=== PATIENT | female | born 1935 | race Caucasian/White ===

== ENCOUNTER 2017-03-06 21:01 | Observation (INO) ==
[2017-03-07] MEDS ORDERED: Acetaminophen 325 MG TABLET PO ONE (03:05)
[2017-03-07] MEDS ORDERED: *HR* OxyCODONE Immed Rel 5 MG TABLET PO PRN (03:18)
[2017-03-07] MEDS ORDERED: *HR* Morphine 2 MG/ML SYRINGE IVP PRN (03:18)
[2017-03-07] MEDS ORDERED: Ondansetron 4 MG/2 ML VIAL IVP PRN (03:18)
[2017-03-07] MEDS ORDERED: Naloxone 0.4 MG/ML INJ IVP PRN (03:18)
[2017-03-07] MEDS ORDERED: Acetaminophen 325 MG TABLET PO PRN (03:18)
--- NOTE | 2017-03-07 03:36 | Internal Med History&Physical ---
Date of Encounter: 03/07/17 Time of Encounter: 03:00 Assessment and Plan (1) TIA (transient ischemic attack) Status: Acute . Qualifiers: Transient cerebral ischemia type: unspecified Qualified Code(s): G45.9 - Transient cerebral ischemic attack, unspecified Internal Medicine - H&P: HPI Chief complaint: TIA Admitted From: Hospital to Hospital Transfer (Hospital transferred from [facility] ED) Plans for Post Hospital Care: Home History of present illness: Ms. Hubbard is a 81 year old female with significant history for HTN, HLD, CVAs/ TIAs, OA/OP/vit D def,AICD-pacemaker/CHF, chr A/C (Xarelto), nonsmoker, etc.. The patient is admitted to [facility] as a hospital transferred from [facility] ED where she presented via EMS from home with complaints concerning of a stroke-like event with slurring of speech. She has significant history of multiple CVAs and TIAs. Compliant with her prescribed medications which also include Xarelto. Denies any indiscretions. Denies any transient fevers chills sweats nausea vomiting diarrhea upper or lower respiratory complaints dysuria frequency or rash. Vital signs were stable. CBC with differential normal. PT 23.0 INR 2.1 PTT 46.7. Urinalysis normal. Basic metabolic panel normal. BUN 22 creatinine 0.84. Troponin 0.01. CT of the head without contrast demonstrated no acute intracranial abnormality. No evidence of any acute infarct, hemorrhage, mass effect or midline shift. Old right occipital lobe infarct noted. Right frontal and left basal ganglia lacunar lesions noted. Periventricular white matter changes compatible with chronic microvascular ischemic changes noted. Preliminary impression suggests transient ischemic episode with reversal initial neuro deficit slurring of speech. Initial screening studies otherwise revealed no acute significant abnormalities to guide differential considerations. The patient is at risk given her advanced age, presenting concerns and comorbidities acute clinical decline and morbidity. Workup and treatments will proceed comprehensively. The patient was visited and interviewed and examined. Cumulative laboratory and radiographic data base will be considered and discussed. Pertinent ancillary medical records including ECW and PCI documentation when available was reviewed and considered. Given the patient's presenting concerns, past medical history, clinical findings and symptoms, she is admitted at this time will undergo further evaluation and disposition. Orders were written as per the computerized physician night order selector system.......................................................................... .................... Consultative opinions will be sought as clinical circumstances justify. Pain management needs will be addressed. Laboratory+radiographic data base will be updated as appropriate. Studies include: UA, UDS,pt/inr, ddimer, aptt, prolactin, cpk, cardiac injury panel, BNP , metabolic and hematologic panel, magnesium, phosphorus, ionized calcium, thyroid panel, lipid profile, A1c, C-peptide, CRP, sedimentation rate, blood gas , lactic acid, serologies, etc. Precautions: Aspiration, fall, delirium protocol/surveillance initiated. Telemetry with continuous hemodynamic monitoring and pulse oximetry initiated. Orthostatic vital signs. Empiric antibiotic coverage: pending diagnostics/culture data. Special studies: CT head, MRI brain, carotid US, 2D echo, chest x-ray, telemetry , EKG. Pulmonary toilet: Incentive spirometry. PRN aerosol bronchodilator, mucolytic, antitussive. Supplemental oxygen. Corticosteroid therapy PRN. CPAP/BiPAP supplemental oxygen delivery employedPRN. Aerosol Mucomyst therapy may be employedPRN. Fluid and electrolyte repletion efforts will proceed. Careful attention to fluid balance and renal recovery will be emphasized. Avoidance of nephrotoxic exposure and adverse drug drug interaction in the setting of impaired renal function will be monitored closely. Acute coronary syndrome protocol/surveillance initiated. Acute WHEEL [employer] SU[employer] injury protocol/surveillance initiated. NIHSS guidelines. Aspirin plus statin therapy. Continuance of chronic anticoagulation (Xarelto). Passive hypertension allowed pending completion of [employer] SU[employer] evaluation. DVT and PUD prophylaxis initiated: PPI therapy, intermittent pneumatic cuffs/ TEDs. Early ambulation will be encouraged. Immunization updates recommended. Influenza and pneumococcal vaccinations as part of ongoing preventative healthcare recommendations strongly recommended. Smoking cessation counseling briefly addressed. Patient is a nonsmoker. Advanced care directive discussion briefly addressed. Patient does not declare any healthcare restrictions at this time. Cardiovascular risk appraisal and cardiovascular risk reduction efforts will be emphasized. Physical+occupational+speech therapy consulted to evaluate patient's functional capacity and progress mobility as her circumstances justify. Nutrition/heart healthy dietary education. Supplemental dietary-options counseling as circumstances justify. Outpatient medication schedules will be reviewed, confirmed and facilitated as appropriate. Reconciliation of home treatments including adjustments, substitutions and reintroduction into the treatment regimen will address necessary maintenance therapies for chronic pre-existing medical conditions. Plan of care has been reviewed and discussed in detail with the patient. Questions addressed. Hospital course dictated by clinical findings, treatment response and potential consultative interventions. Patient is at risk for further acute clinical decline due to her age, chief complaints and comorbid conditions. Condition is serious. Prognosis is guarded. CODE STATUS is full. Past Med Surg Social Fam HX - Past Medical History Source: old records reviewed Medical history: arthritis, CVA, diabetes, hyperlipidemia, hypertension, osteoporosis (vit D def...), TIA, other Psychiatric history: anxiety, other - Past Surgical History Surgical History: pacemaker/AICD, other, AICD, pacemaker - Social History Smoking Status: Never smoker Smokeless Tobacco Status: No Alcohol use: none Drug use: none Occupational status: unemployed, other Current living situation: Home - Independent Activity Level: Independent ambulation, Mostly sedentary Recent Out of Country Travel Within the Last 8 Weeks: No Exposure or Possible Exposure to Illness During Travel: No - Family History Mother Living Status: Hx Family Cardiac Disorders: Yes ([place]) Hx Family Endocrine Disorder: Yes Hx Family Neurologic Disorders: Yes (CVA) Internal Medicine - H&P: Meds Cholecalciferol (Vitamin D3) [Vitamin D3] 5,000 unit PO DAILY 03/06/17 [History] ClonazePAM [Klonopin] 0.5 mg PO BID 03/06/17 [History] Magnesium Oxide [Magnesium] 500 mg PO DAILY 03/06/17 [History] Gibson-3/Dha/Epa/Fish Oil [Fish Oil 1,000 mg Softgel] 1,000 mg PO DAILY 03/06/17 [History] Rivaroxaban [Xarelto] 10 mg PO 1700 03/06/17 [History] Patient Taking Own Medication 1 each PO DAILY each 03/08/17 [Rx] Allergies Penicillins Adverse Reaction (Verified 03/06/17 19:16) Hives ROS unobtainable: due to mental status All Systems PM: A 10-system review of systems was performed and is negative for pertinent findings except as documented above in the HPI. - Constitutional Constitutional: as per HPI, malaise, no chills, no fever(s), no night sweats - EENT Eyes: as per HPI, no change in vision, no discharge, no pain, no photophobia Ears: as per HPI, no ear discharge, no ear pain, no tinnitus Nose, mouth and throat: as per HPI, no dysphagia, no nasal discharge, no neck pain, no sore throat - Cardiovascular Cardiovascular ROS IM: as per HPI, no chest pain, no diaphoresis, no dyspnea, no lightheadedness, no palpitations, no syncope - Respiratory Respiratory: as per HPI, no cough, no dyspnea, no wheezing, no excessive phlegm production - Gastrointestinal Gastrointestinal: as per HPI, no abdominal pain, no diarrhea, no hematemesis, no hematochezia, no melena, no nausea, no vomiting - Genitourinary Genitourinary: as per HPI, no change in urinary stream, no dysuria, no flank pain, no hematuria - Musculoskeletal Musculoskeletal ROS IM: as per HPI, no numbness, no tingling - Integumentary Integumentary IM: as per HPI, no rash, no unusual bruising - Neurological Neurological ROS: as per HPI, abnormal speech, other, no confusion, no convulsions, no focal weakness, no numbness, no tingling, no tremor(s) - Psychiatric Psychiatric: as per HPI - Endocrine Endocrine IM: as per HPI - Hematologic/Lymphatic Hematologic/Lymphatic: as per HPI, no easy bruising - Allergic/Immunologic Allergic/Immunologic: as per HPI - Constitutional Vitals: Temp Pulse Resp BP Pulse Ox 97.4 F L 62 16 145/74 96 03/07/17 03:00 03/07/17 03:00 03/07/17 03:00 03/07/17 03:00 03/07/17 03:00 General appearance: Present: cooperative, mild distress, A&O X 3, answers questions appropriately - Head Head exam: Present: atraumatic, normal inspection, normocephalic - Eye Eye exam: Present: EOMI, PERRL, conjuntiva pink, sclera anicteric Pupils: Present: normal accommodation, PERRL - ENT ENT exam: Present: mucous membranes moist, normal oropharynx - Neck Neck exam general surgery: Present: supple, trachea midline. Absent: lymphadenopathy - Respiratory Respiratory exam: Present: decreased breath sounds, CTAB. Absent: accessory muscle use, rales, rhonchi, wheezes - Cardiovascular Cardiovascular exam: Present: distant heart sounds, RRR, +S1, +S2. Absent: diastolic murmur, gallop, rubs, systolic murmur - GI/Abdominal GI/Abdominal exam: Present: normal bowel sounds, soft, no peritoneal signs. Absent: distended, tenderness - Extremities Exam Extremities exam: Present: warm, radial pulses palpable and symetrical. Absent : calf tenderness, cyanotic, pedal edema - Neurological Exam Neurological exam: Present: alert, CN II-XII intact, oriented X3, no focal deficits. Absent: pronater drift, facial droop, speech deficit - Expanded Neurological Exam Neurological exam expanded: Present: protecting the airway. Absent: ataxia, expressive aphasia, receptive aphasia, tremor Patient oriented to: Present: person, place, time Speech: Present: fluid speech Cranial Nerves: EOM's intact PM: Normal, gag reflex PM: Normal, nystagmus PM: Normal, tongue deviation PM: Normal Cerebellar function: finger to nose: Normal, heel to copeland: Normal Upper motor neuron: Babinski sign: Normal, Anshul neglect: Normal, pronator drift : Normal, sensory extinction: Normal Coma Scale Eye Opening: Spontaneous Coma Scale Motor Response: Obeys Commands Coma Scale Verbal Response: Oriented Coma Scale Total: 15 - Psychiatric Psychiatric exam: Present: normal affect, normal mood - Skin Skin exam: Present: dry, intact Internal Med - H&P Results - Labs CBC & Chem 7: 03/08/17 05:56 03/08/17 05:56
--- NOTE | 2017-03-07 03:41 | Event Note ---
Date of Encounter: 03/07/17
[2017-03-07] MEDS: 0.9 % Sodium Chloride 1,000 ML IVC SCH (04:22)
[2017-03-07] MEDS: clonazePAM 0.5 MG TABLET PO SCH ×2 (04:22→20:23)
[2017-03-07 04:35] LABS: VBG HCO3 29.1 mEq/L (21-27); VBG PH 7.54 pH Units (7.32-7.42)
[2017-03-07 04:47] LABS: Hemoglobin A1C 4.8 %
[2017-03-07 04:59] LABS: Chol/HDL Ratio 3.7 (0-4.9); Phosphorous 3.3 mg/dL (2.3-4.7)
[2017-03-07] MEDS ORDERED: Patient Taking Own Medication 1 EACH PO SCH (09:00)
[2017-03-07] MEDS ORDERED: Aspirin 81 MG TAB.CHEW PO SCH (09:00)
--- NOTE | 2017-03-07 15:20 | Internal Med Progress Note ---
Date of Encounter: 03/07/17 Time of Encounter: 10:00 - Assessment and plan (1) TIA (transient ischemic attack) Current Visit: Yes Status: Acute Assessment and plan: Patient reports sudden onset diffuse 10/10 headache yesterday, onset about 3 or 4 PM yesterday. She was speaking on the phone to her son who told her that she needed to go to the emergency department. Patient states that she was very confused and did not know what was going on. She says that she cut her hair which is unusual for her and that she is dropping her scissors the whole time. She did notice her speech was slurred and she was having trouble finding the appropriate words to use. Patient said she eventually called her neighbor who called 911 for her. She was taken to the emergency [facility] and then transferred here for evaluation. She denies headache today. She has a prior history CVA/TIA. She denies any weakness or numbness/tingling to her extremities. She denies any chest pain. She appears to have no deficits at has returned to baseline. MRI shows no evidence of acute infarct. There is moderate chronic small vessel ischemic disease within the periventricular white matter. There is a small right occipital lobe infarct. Carotid Dopplers and echocardiogram are ordered and still pending. She passed her swallow exam. Patient is on telemetry. She also has a loop recorder that was implanted here 2 years ago. Monitor patient condition Monitor vital signs Carotids and echo pending Qualifiers: Transient cerebral ischemia type: unspecified Qualified Code(s): G45.9 - Transient cerebral ischemic attack, unspecified (2) HTN (hypertension) Current Visit: Yes Status: Acute Assessment and plan: Patient's blood pressure was initially elevated on arrival. Since that time it has remained within normal limits. We will continue to monitor throughout visit. Patient does not take any blood pressure medication at home. Per patient's history, she says that she only has hypertension when she is having her TIAs. Qualifiers: Hypertension type: other secondary hypertension Qualified Code(s): I15.8 - Other secondary hypertension (3) HLD (hyperlipidemia) Current Visit: Yes Status: Chronic Assessment and plan: Patient states that her cholesterol was 190 and her primary care physician told her that her cholesterol was too high. She only takes fish oil supplements at this time. Lipid panel is within normal limits. Cholesterol is in the 170s. HDL is elevated. Patient can continue fish oil supplements after discharge. Qualifiers: Hyperlipidemia type: unspecified Qualified Code(s): E78.5 - Hyperlipidemia , unspecified (4) DVT prophylaxis Current Visit: Yes Status: Acute Assessment and plan: Patient is on Xarelto. Compression stockings ordered. - Time Spent With Patient less than 15 minutes - Subjective Interval history: Patient reports diffuse headache with sudden onset yesterday at approximately 3 or 4 PM. She rates it a 10 out of 10. She also reports confusion at the same time, she cut her hair which she does not normally do. She says that she dropped her scissors multiple times and did not know what she was doing. She also noticed slurred speech, which has since resolved. Patient lives alone. She was speaking to her son on the phone who told her to go to the emergency room immediately. She ended up calling her neighbor who came over and called 911 for her. She is transported to [facility] and then transferred here for evaluation. She currently denies a headache, and she also denies weakness or tingling to any of her extremities. She is neurologically intact. She is strong and equal bilaterally all his commands well. Has GCS of 15. Her speech is not slurred and she is able to name pictures. - Constitutional Vitals: Temp Pulse Resp BP Pulse Ox 97.5 F L 61 18 132/62 96 03/07/17 14:51 03/07/17 14:51 03/07/17 14:51 03/07/17 14:51 03/07/17 14:51 General appearance: Present: cooperative, A&O X 3, pleasant, no acute distress, answers questions appropriately - Head Head exam: Present: normal inspection - Eye Eye exam: Present: normal appearance, PERRL, conjuntiva pink. Absent: nystagmus - ENT ENT exam: Present: mucous membranes moist, normal exam, normal external ear exam - Neck Neck exam general surgery: Present: normal inspection. Absent: lymphadenopathy , tenderness - Respiratory Respiratory exam: Present: CTAB. Absent: accessory muscle use, chest wall tenderness, decreased breath sounds, rales, respiratory distress, rhonchi, stridor, wheezes, tachypnea - Cardiovascular Cardiovascular exam: Present: RRR, +S1, +S2. Absent: diastolic murmur, systolic murmur - Expanded Cardiovascular Exam Peripheral pulses: 2+: Dorsalis Pedis (L) PM, Dorsalis Pedis (R) PM - GI/Abdominal GI/Abdominal exam: Present: normal bowel sounds, soft. Absent: distended, firm , hepatomegaly, mass, tenderness - Extremities Exam Extremities exam: Present: full ROM, normal capillary refill, normal inspection , warm, radial pulses palpable and symetrical. Absent: joint swelling, pedal edema, tenderness - Neurological Exam Neurological exam: Present: alert, altered, oriented X3, no focal deficits, strengths equal and symetr throughout. Absent: motor sensory deficit, pronater drift, facial droop, speech deficit - Expanded Neurological Exam Neurological exam expanded: Absent: expressive aphasia, total aphasia Patient oriented to: Present: person, place, time Speech: Absent: expressive aphasia, garbled, slurred, stutter Cranial Nerves: nystagmus PM: Normal (none), tongue deviation PM: Normal (none) Cerebellar function: finger to nose: Normal, heel to copeland: Normal Upper motor neuron: pronator drift: Normal (none), sensory extinction: Normal ( none) Coma Scale Eye Opening: Spontaneous Coma Scale Motor Response: Obeys Commands Coma Scale Verbal Response: Oriented Coma Scale Total: 15 Internal Medicine: Result - Labs Labs: Cardiac Enzymes 03/07/17 03/07/17 Range/Units 04:12 12:43 Troponin I 0.00 0.00 (0-0.03) ng/mL - Impressions Impressions Brain MRI 03/07/17 04:01 IMPRESSION: No evidence of acute infarct. Moderate chronic small vessel ischemic disease within the periventricular white matter. Small old right occipital lobe infarct. D/ / 03/07/2017 11:00:32 Seth Tiwari MD / [email or web address] Interpreting Provider: Seth Tiwari MD Consult Discharge Plan - Plan Referrals: Ricardo Adams MD [Primary Care Provider] -
[2017-03-07] MEDS ORDERED: *HR* Rivaroxaban 10 MG TABLET PO SCH (17:00)
--- NOTE | 2017-03-07 18:50 | Carotid Imaging Report ---
Carotid Duplex Patient Name:Cori Hubbard Order Number:[id number] Procedure Date:03/07/2017 Date:1935ge:81 yrs Gender:Female Lt BP:132 / 62 mmHg [facility] Room #: 3B52 Optician Apprentice Dispensing:Alis Martinez, RVT, RDCS Referring MD:Andrez Conklin MD sanitation engineer:None Reading MD:Roman Trinh MD Primary Indications:stroke Risk Factors Yes/No Hypertension No Diabetes No Hypercholesterolemia No Smoking Current No Impressions: The right internal carotid artery has a 40-59% stenosis. The left carotid artery has minimal plaque throughout. Recommendations: Risk factor reduction. Follow-up carotid duplex in 1 year. Findings Carotid Duplex: Right: The right proximal common carotid artery has a PSV of 101 cm/s and a EDV of 11 cm/s. The right mid common carotid artery has a PSV of 84 cm/s and a EDV of 13 cm/s. The right distal common carotid artery has a PSV of 77 cm/s and a EDV of 18 cm/s. The right bifurcation has a PSV of 84 cm/s and a EDV of 14 cm/s. There is smooth heterogeneous plaque. The right proximal internal carotid artery has a PSV of 102 cm/s and a EDV of 19 cm/s. There is smooth heterogeneous plaque. There is 40-59% stenosis in the right mid internal carotid artery with a PSV of 131 cm/s and a EDV of 22 cm/s. There is smooth heterogeneous plaque. The right distal internal carotid artery has a PSV of 107 cm/s and a EDV of 32 cm/s. The right eca has a PSV of 126 cm/s and a EDV of 8 cm/s. The right vertebral artery has a PSV of 76 cm/s and a EDV of 24 cm/s. Left: The left proximal common carotid artery has a PSV of 100 cm/s and a EDV of 14 cm/s. The left mid common carotid artery has a PSV of 94 cm/s and a EDV of 22 cm/s. The left distal common carotid artery has a PSV of 79 cm/s and a EDV of 16 cm/s. There is nonstenotic plaque in the left bifurcation with a PSV of 59 cm/s and a EDV of 14 cm/s. There is smooth heterogeneous plaque. There is nonstenotic plaque in the left proximal internal carotid artery with a PSV of 65 cm/s and a EDV of 17 cm/s. There is smooth heterogeneous plaque. The left mid internal carotid artery has a PSV of 55 cm/s and a EDV of 18 cm/s. The left distal internal carotid artery has a PSV of 75 cm/s and a EDV of 27 cm/s. The left eca has a PSV of 115 cm/s and a EDV of 10 cm/s. The left vertebral artery has a PSV of 26 cm/s and a EDV of 5 cm/s. Carotid Results Right PSV EDV Assessment Proximal CCA 101 11 Mid CCA 84 13 Distal CCA 77 18 Bifurcation 84 14 Non Stenotic Plaque Proximal ICA 102 19 Non Stenotic Plaque Mid ICA 131 22 40-59% stenosis Distal ICA 107 32 ECA 126 8 Vertebral Artery 76 24 Left PSV EDV Assessment Proximal CCA 100 14 Mid CCA 94 22 Distal CCA 79 16 Bifurcation 59 14 Non Stenotic Plaque Proximal ICA 65 17 Non Stenotic Plaque Mid ICA 55 18 Distal ICA 75 27 ECA 115 10 Vertebral Artery 26 5 Ratio's Right ICA/CCA Ratio: 1.56 Left ICA/CCA Ratio: 0.69 Updated by Roman Trinh MD on 03/07/2017 6:45:48 PM electronically signed on 03/07/2017 6:45:59 PM with status of Final
[2017-03-08] MEDS: 0.9 % Sodium Chloride 1,000 ML IVC SCH (04:18)
[2017-03-08 07:09] VITALS: BP 174/68
[2017-03-08 07:11] LABS: Basophils # 0.1 K/mcL (0.0-0.2); Basophils % 0.6 %; Eosinophils # 0.2 K/mcL (0.0-0.6); Eosinophils % 2.2 %; Hematocrit 38.7 % (35.3-44.9); Hemoglobin 12.6 g/dL (11.5-15.4); Immature Granulocytes % 0.5 % (0-4); Lymphocytes # 1.7 K/mcL (0.6-4.6); Mean Corpuscular HGB Conc 32.6 g/dL (31.6-35.5); Mean Corpuscular Volume 92.1 fL (83.0-100.0); Mean Platelet Volume 11.3 fL (9.4-12.4); Monocytes # 0.7 K/mcL (0.0-1.3); Monocytes % 9.5 %; Platelet Count 188 K/mcL (140-400); Red Cell Distribution Width 12.1 % (11.5-14.5); Segmented Neutrophils % 65.2 %
[2017-03-08 07:21] LABS: BUN/Creatinine Ratio 25 (6-26); Blood Urea Nitrogen 18 mg/dL (7-20); Calcium 9.2 mg/dL (8.6-10.8); Carbon Dioxide 26 mEq/L (19-29); Chloride 111 mEq/L (98-109); Glucose 95 mg/dL (70-99); Osmolality,Calculated 298 (280-300); Potassium 3.6 mEq/L (3.5-4.5); Sodium 143 mEq/L (136-145); eGFR For African Americans > 60 (> 60); eGFR For Non-African Americans > 60 (> 60)
--- NOTE | 2017-03-08 09:36 | ECHO - Doppler Report ---
Echo with Saline Contrast Name: Cori Hubbard Date of Study: 03/07/2017 Date: 1935 Ht: 64.0 in Medical Record#: [id number] Age: 81 Wt: 132.0 lb Gender: Female BSA: 1.64 Order #: [id number] Location: [facility] Room #: [facility] Reading Physician: Ameena Mondragon DO Office Equipment Technician: Alis Martinez RVT, [facility] Ordering Physician: Andrez Conklin MD Primary Physician: None Indications: Stroke Impressions: LVEF 60-65%. Normal left ventricular size and systolic function. Mild concentric hypertrophy of the left ventricle. There is evidence of mild diastolic dysfunction of the left ventricle. Normal right ventricular size and function. Mild mitral regurgitation. No pulmonary hypertension. There is no evidence of a PFO with agitated saline contrast. Left Ventricular Wall Motion: Rest Echo Findings All wall segments showed normal motion. Findings: Study Quality * Technically adequate exam. ECG Findings * Sinus bradycardia. Left Ventricle * LVEF 60-65%. * Mild concentric left ventricular hypertrophy. * Mild left ventricular diastolic dysfunction. Right Ventricle * Normal right ventricular structure and function. Aorta * Normally sized aortic root. Left Atrium * Normal left atrial size. Aortic Valve * No aortic regurgitation. * Trileaflet aortic valve. * Mildly calcified aortic valve leaflets. * No aortic stenosis. Mitral Valve * Normal mitral valve structure. * No mitral stenosis. * Mild mitral regurgitation. Right Atrium * Normal right atrial size. Tricuspid Valve * Tricuspid valve not well visualized. * Estimated RA pressure is 3 mmHg. * Estimated RVSP is 20 mmHg. * No pulmonary hypertension. * Trace tricuspid regurgitation. Pulmonic Valve * Pulmonic valve is not well visualized. * No pulmonic stenosis. * No pulmonic regurgitation. Pulmonary Artery * Pulmonary artery not well visualized. Interatrial Septum * No evidence of PFO by color Doppler. * No evidence of PFO with agitated saline contrast. Pericardium * There is no pericardial effusion present. IVC * Normal IVC dimensions and inspiratory collapse. History Family History of CAD Contrast: Agitated saline 20 ml. Measurements: BP: 132/ 62 2D Normal Values RVIDd: 3.10 cm <2.7 cm IVSd: 1.30 cm 0.6 - 1.0 cm LVIDd: 3.10 cm 3.7 - 5.6 cm LVPWd: 1.30 cm 0.6 - 1.1 cm LVIDs: 2.00 cm 1.5 - 3.6 cm AO: 2.50 cm < 4.0 cm LA: 3.10 cm 2.0 - 4.0cm %FS: 35.50 cm >25 % LA volume: 28 Mitral Valve Dec Time:257.00 msec Peak E:1.06 m/sec Peak A:1.32 m/sec E/A Ratio:0.8 Peak E' Lat Yemi:5.95 cm/s Peak E' Med Yemi:7.46 cm/s E/E' Lat Ratio:17.8 E/E' Med Ratio:14.2 Tricuspid Valve TV Regurg Peak Grad: 17.00mmHg TV Regurg Peak Yemi: 2.09m/sec Updated by Ameena Mondragon on 03/08/2017 9:29:55 AM electronically signed on 03/08/2017 9:31:46 AM with status of Final Wall Motion [place]: 1=Normal, 2=Hypokinesis, 3=Akinesis, 4=Dyskinesis, 5=Aneurysmal, 6=Hyperkinetic, X=Not Visualized (Blank)=Missing
--- NOTE | 2017-03-08 10:34 | Discharge Summary ---
Date of Encounter: 03/08/17 Time of Encounter: 10:05 - Discharge Diagnosis (1) TIA (transient ischemic attack) Priority: Primary Status: Acute Comments: Pt reports sudden onset diffuse 10/10 headache yesterday that was accompanied by confusion and slurred speech. Pt was taken to ED by EMS then transferred here for evaluation. MRI shows no evidence of acute infarct, moderate chronic small vessel ischemic disase within the periventricular white matter, remote small right occipital lobe infarct. CT head showed no evidence of acute infarct, findings similar to MRI. Echo shows LVEF 60-65%, normal systolic function, mild concentric hypertrophy of L ventricle, mild diastolic dysfunction, mild RM and no pulmonary hypertension. Carotid dopplers: R ICA has 40-59% stenosis, L ICA has minimal plaque throughout. Follow up in 1 year and reduce risk factors. Pt is back to baseline and without deficits, gait is steady, speech is clear, she denies numbness or tingling. She is anxious to go home since testing is done. Pt's lipid panel is WNL other than HDL, which is elevated. Pt takes fish oil supplements at home. Declines statin, states that her had difficulty walking and joint pain for several months and she does not wish to potentially have those symptoms. She wishes to continue fish oil at home. Qualifiers: Transient cerebral ischemia type: unspecified Qualified Code(s): G45.9 - Transient cerebral ischemic attack, unspecified (2) HTN (hypertension) Priority: Secondary Status: Chronic Comments: Blood pressure has been 140/70s, at goal and appropriate for pts age. No medication required at this time. Pt will be asked to continue to monitor periodically and keep a log to discuss with PCP. Qualifiers: Hypertension type: other secondary hypertension Qualified Code(s): I15.8 - Other secondary hypertension (3) HLD (hyperlipidemia) Priority: Secondary Status: Chronic Comments: Lipid panel WnL, other than HDL which is elevated. Continue fish oil supplements upon discharge. Qualifiers: Hyperlipidemia type: unspecified Qualified Code(s): E78.5 - Hyperlipidemia , unspecified (4) DVT prophylaxis Priority: Secondary Status: Acute Comments: Continue Xarelto at home. (5) Diastolic dysfunction, left ventricle Priority: Secondary Status: Acute Comments: Per echo done yesterday. No CHF or pulmonary hypertension. - Discharge Medications Home Medications: Cholecalciferol (Vitamin D3) [Vitamin D3] 5,000 unit PO DAILY 03/06/17 [History] ClonazePAM [Klonopin] 0.5 mg PO BID 03/06/17 [History] Magnesium Oxide [Magnesium] 500 mg PO DAILY 03/06/17 [History] [place]-3/Dha/Epa/Fish Oil [Fish Oil 1,000 mg Softgel] 1,000 mg PO DAILY 03/06/17 [History] Rivaroxaban [Xarelto] 10 mg PO 1700 03/06/17 [History] Patient Taking Own Medication 1 each PO DAILY each 03/08/17 [Rx] Allergies/Adverse Reactions: Allergies Penicillins Adverse Reaction (Verified 03/06/17 19:16) Hives Procedures/tests Complete & Pending: Procedures Performed prior 72 hours Category Date Time Status MR head/brain wo con [MR] Routine MRI 03/07/17 04:01 Completed EV carotid duplex imaging BI Routine Y 03/07/17 04:01 Completed EV echocardiogram Routine Y 03/07/17 04:01 Completed Date of admission: 03/06/17 23:02 Primary care physician: Ricardo Adams MD Consults: 03/07/17 03:35 Consult to Occupational Therapy [CONS] Routine Comment: Evaluate, develop and implement POC Consult to Physical Therapy [CONS] Routine Comment: Evaluate, develop and implement POC Discharging clinician: Liz Washington Anticipated date of discharge: 03/08/17 - Patient Status Disposition: Home, Self-Care Condition: Good Functional capacity at discharge: independent ambulation Overall status at discharge: patient is back to baseline - Discharge Instructions Follow Up With: Ricardo Adams MD [Primary Care Provider] - 03/12/17 1:00 pm Aramis Crespo MD [Partnered Physician] - 03/09/17 9:45 am Additional Instructions: Your Brain MRI did not show a new stroke. Your carotid dopplers were ok. You do not need to follow up for a repeat test for 1 year. Low fat, low cholesterol diet. Try to stay active. Resume your home medications once you are home. Return to the closest ER for any other problems or concerns, or for worsening condition. Follow up with Dr. Adams in the next week or so for a follow up exam. - Diet and Activity Activity: resume usual activities as tolerated Diet: advance to your usual diet Hospital course: Ms. Hubbard is a 81 year old female with a prior medical history of TIA/CVA, hypertension, and hyperlipidemia. Patient was transported to [facility] emergency room from home on March 06, after she experienced sudden 10 out of 10 diffuse headache with confusion and slurred speech. She was talking on the phone with her son and was very confused, she cut her hair and states that she kept dropping the scissors and did not know what she was doing. Eventually, she called her neighbor who called the squad for her. She was transferred to this emergency department for continued evaluation. Her head CT was negative for acute infarct, and her brain MRI showed no evidence of acute infarct, as well. There is moderate chronic small vessel ischemic disease within the periventricular white matter, and a small right remote occipital lobe infarct. Her right internal carotid artery has a 40-59% stenosis. The left carotid artery has minimal plaque throughout. Recommendations are reduction in risk factors and no follow-up necessary for one year. Echocardiogram shows LVEF of 60-65%, normal systolic function, evidence of mild diastolic dysfunction of left ventricle, mild MR, and no pulmonary hypertension. Patient is anxious to return home. She has remained neurologically intact and has no deficits. She has returned to baseline per her own account. Her gait is steady as I walk with her in the hallway, her speech is clear. She is able to move about in her room and dress herself without difficulty. She has declined taking a statin due to decreased mobility of her when he was taking it. She will continue taking her fish oil supplement at home. Her blood pressure today has been 140s over 60s and 70s which is goal and appropriate. She will also continue her Xarelto and her other home medications at home. Patient is stable for discharge. - Time Spent with Patient Total time spent providing and/or coordinating discharge services: Less than 30 minutes - Constitutional Vitals: Temp Pulse Resp BP Pulse Ox 97.5 F L 59 14 174/68 98 03/08/17 06:59 03/08/17 06:59 03/08/17 06:59 03/08/17 06:59 03/08/17 06:59 General appearance: Present: cooperative, A&O X 3, pleasant, no acute distress, answers questions appropriately - Head Head exam: Present: normal inspection - Eye Eye exam: Present: normal appearance, conjuntiva pink - ENT ENT exam: Present: mucous membranes moist, normal exam, normal external ear exam - Neck Neck exam general surgery: Present: normal inspection. Absent: lymphadenopathy , tenderness - Respiratory Respiratory exam: Present: CTAB. Absent: decreased breath sounds, rales, stridor, wheezes, tachypnea - Cardiovascular Cardiovascular exam: Present: RRR, +S1, +S2. Absent: clicks, diastolic murmur, gallop, systolic murmur - GI/Abdominal GI/Abdominal exam: Present: normal bowel sounds, soft. Absent: distended, firm , hepatomegaly, tenderness - Extremities Exam Extremities exam: Present: normal capillary refill, normal inspection, warm, radial pulses palpable and symetrical. Absent: mottling, pedal edema, tenderness - Neurological Exam Neurological exam: Present: alert, normal gait, oriented X3, no focal deficits, strengths equal and symetr throughout. Absent: pronater drift, facial droop, speech deficit
== END 2017-03-08 12:30 | disposition home or self-care (01) ==
LOC: 3BNU
PROVIDERS: ADMIT Family Medicine; ATTEND Registered Nurse

== ENCOUNTER 2017-09-07 20:49 | Observation (INO) ==
[2017-09-07] MEDS ORDERED: 0.9 % Sodium Chloride 1,000 ML IVC ONE (21:29)
--- NOTE | 2017-09-07 21:38 | Emergency Department Note ---
Disposition Clinical Impression: Altered mental status Qualifiers: Altered mental status type: disorientation Qualified Code(s): R41.0 - Disorientation, unspecified Dementia Qualifiers: Dementia type: unspecified type Dementia behavioral disturbance: without behavioral disturbance Qualified Code(s): F03.90 - Unspecified dementia without behavioral disturbance Disposition: Admitted As Inpatient Condition: Good Time of Disposition: 00:28 Altered Mental Status HPI - General Chief Complaint: ED Altered Mental Status Stated Complaint: confusion Time Seen by Provider: 09/07/17 21:09 Source: patient, family Mode of arrival: private vehicle Limitations: no limitations Nursing Notes Reviewed: Yes Vital Signs Reviewed: Yes - History of Present Illness HPI Narrative: 82-year-old female presents the ED complaining of altered mental status, confusion, falls and diarrhea. Patient states that yesterday she was ironing and she felt a weird pain in her left leg and some numbness that caused her to fall backwards she states that she did hit her head but did not lose consciousness and she remembers the entire event. She is not complaining of any headache or neck pain after that. Today though she says that she has been a little confused. She says she has had multiple bouts of diarrhea today. She has had no fevers or abdominal pain. She has no chest pain or shortness of breath. She has no headaches or blurry vision. She has no numbness or pain or tingling going down the arms or legs. She has no pain with urination. Son states that he was called by the police [facility] as her alarms went off at her house. When police arrived they noticed that she was on the ground saying that she was unable to get up. She was crawling around like she was very confused. She is unable to lock her doors or even walk to the car. She has been unable to walk since he arrived to pick her up with police. Otherwise patient has no complaints. - Related Data Home Medications Medication Instructions Recorded Confirmed Cholecalciferol (Vitamin D3) 5,000 unit PO DAILY 03/06/17 03/07/17 [Vitamin D3] Magnesium Oxide [Magnesium] 500 mg PO DAILY 03/06/17 03/07/17 [place]-3/Dha/Epa/Fish Oil [Fish Oil 1,000 mg PO DAILY 03/06/17 03/07/17 1,000 mg Softgel] Rivaroxaban [Xarelto] 10 mg PO 1700 03/06/17 03/07/17 clonazePAM [Klonopin] 0.5 mg PO BID 03/06/17 03/07/17 Previous Rx's Medication Instructions Recorded Patient Taking Own Medication 1 each PO DAILY each 03/08/17 Allergies Allergy/AdvReac Type Severity Reaction Status Date / Time Penicillins AdvReac Hives Verified 09/07/17 21:03 Review of Systems: 10 point review of systems done and negative unless otherwise stated in history of present illness. Constitutional: Reports: weakness. Denies: fever, chills, weight change Cardiovascular: Denies: chest pain Respiratory: Denies: cough, wheezes Gastrointestinal: Reports: diarrhea. Denies: abdominal pain, nausea, vomiting Neurological: Reports: weakness, confusion. Denies: headache, numbness, paresthesias, abnormal gait Past Medical History - Past Medical History Medical history: Reports: arthritis, CVA, diabetes, hyperlipidemia, hypertension , osteoporosis, TIA, other Surgical history: Reports: pacemaker/AICD, other, AICD, pacemaker Psychiatric history: Reports: anxiety, other - Social History Smoking Status: Never smoker Smokeless Tobacco Status: No Alcohol use: Reports: none Drug use: Reports: none Physical Exam - General Limitations: no limitations General appearance: alert, in no apparent distress - Head Head exam: atraumatic, normocephalic, normal inspection - Eye Eye exam: Present: normal appearance, PERRL, EOMI - ENT ENT exam: normal exam, normal oropharynx, mucous membranes moist - Neck Neck exam: Present: normal inspection, full ROM, trachea midline. Absent: tenderness - Chest Chest inspection: Present: normal inspection, symmetric chest wall rise - Respiratory Respiratory exam: Present: normal lung sounds bilaterally - Cardiovascular Cardiovascular exam: Present: regular rate, normal rhythm, normal heart sounds - Abdominal Exam Abdominal exam: Present: soft, Non-Tender. Absent: tenderness, distention, guarding, rebound, rigidity - Back Exam Back exam: Present: normal inspection, full ROM. Absent: tenderness, CVA tenderness (R), CVA tenderness (L) - Neurological Exam Neurological exam: Present: alert, oriented X3 - Skin Skin exam: Present: warm, dry, intact, normal color Course Course Narrative: 82-year-old female with confusion and altered mental status. We will do normal altered mental status workup including CT of her head and neck as she is on Xarelto. We will get a chest x-ray as well as a pelvis x-ray as patient is unable to walk. We will get a troponin, CMP, CBC, coags, acetaminophen, ethanol level. We will also get a urinalysis. We will also get an EKG. Patient family or care with this plan. Disposition is most likely admission. Vital Signs Temperature 98.1 F 09/07/17 20:58 Pulse Rate 99 09/07/17 20:58 Respiratory Rate 20 09/07/17 20:58 Blood Pressure 168/90 09/07/17 20:58 O2 Sat by Pulse Oximetry 98 09/07/17 20:58 Temperature 97.8 F 09/08/17 00:34 Pulse Rate 82 09/08/17 00:34 Respiratory Rate 16 09/08/17 00:34 Blood Pressure 150/81 09/08/17 00:34 O2 Sat by Pulse Oximetry 99 09/08/17 00:34 Oxygen Delivery Oxygen Delivery Room Air Altered Mental Status - MDM Narrative Medical decision making narrative: 82-year-old female presents to the ED complaining of confusion, diarrhea and altered mental status. Patient presented here with her son who states that she has not been acting normal she is unable to walk and was unable to lock the door which is very abnormal for her. She is normal walking and talking and acting normal. She did state that she fell yesterday from standing position did hit her head but did not have any loss of consciousness or amnesia. She states since then she uses had a hard time remembering things. She has had 1 or 2 episodes of diarrhea. Due to this altered mental status was due to altered mental status workup which came back only showing a slight leukocytosis , elevated CK and possible urinary tract infection. Culture was recommended wearing a wait to treat with antibiotics until the culture comes back. Patient did have a normal neurological exam. She had no other findings on physical exam. CT head and neck both came back showing no abnormalities. EKG and chest x-ray were also normal. We also did a pelvis x-ray which also came back normal. Due to the patient having altered mental status she will be admitted for further evaluation and treatment. Patient and family are okay with this plan. I was agreed to admit the patient for further evaluation. Patient is admitted in stable condition Cervical Spine CT 09/07/17 21:29 IMPRESSION: No acute abnormality of the cervical spine. D/ / Bipin Good MD / Bipin Good MD Interpreting Provider: Bipin Good MD Chest X-Ray 09/07/17 21:29 IMPRESSION: No acute cardiopulmonary disease. D/ / Roman Naik MD / Roman Naik MD Interpreting Provider: Roman Naik MD Head CT 09/07/17 21:29 IMPRESSION: No acute intracranial abnormality. D/ / Neville King MD / Neville King MD Interpreting Provider: Neville King MD Pelvis X-Ray 09/07/17 21:30 IMPRESSION: No evidence of an acute fracture. 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 D/ / Roman Naik MD / Roman Naik MD Interpreting Provider: Roman Naik MD - Medical Records Medical records reviewed: Yes I reviewed the patient's medical records. - Lab Data Lab results reviewed: Yes I reviewed the patient's lab results. Result diagrams: 09/07/17 21:50 09/07/17 21:50 Lab Results 09/07/17 09/07/17 09/07/17 Range/Units 21:50 21:50 21:50 WBC 12.5 H (4.3-11.1) K/mcL RBC 4.69 (3.82-4.97) M/mcL Hgb 14.6 (11.5-15.4) g/dL Hct 42.7 (35.3-44.9) % MCV 91.0 (83.0-100.0) fL MCH 31.1 (28.0-33.3) pg MCHC 34.2 (31.6-35.5) g/dL RDW 12.2 (11.5-14.5) % Plt Count 246 (140-400) K/mcL MPV 10.8 (9.4-12.4) fL Immature Gran % 0.4 (0-4) % Seg Neutrophils % 79.8 % Lymphocytes % 11.1 % Monocytes % 8.2 % Eosinophils % 0.2 % Basophils % 0.3 % Neutrophils # 10.0 H (1.6-8.9) K/mcL Lymphocytes # 1.4 (0.6-4.6) K/mcL Monocytes # 1.0 (0.0-1.3) K/mcL Eosinophils # 0.0 (0.0-0.6) K/mcL Basophils # 0.0 (0.0-0.2) K/mcL PT 14.0 H (9.4-12.1) Seconds INR 1.3 APTT 36.3 H (26.0-36.0) Seconds Sodium 142 (136-145) mEq/L Potassium 3.9 (3.5-4.5) mEq/L Chloride 105 (98-109) mEq/L Carbon Dioxide 27 (19-29) mEq/L BUN 25 H (7-20) mg/dL Creatinine 0.75 (0.57-1.11) mg/dL Est GFR ( Amer) > 60 (> 60) Est GFR (Non-Af Amer) > 60 (> 60) BUN/Creatinine Ratio 33 H (6-26) Glucose 111 H (70-99) mg/dL Calculated Osmolality 299 (280-300) Calcium 9.9 (8.6-10.8) mg/dL Total Bilirubin 0.6 (0.2-1.2) mg/dL Direct Bilirubin 0.2 (0.0-0.5) mg/dL Indirect Bilirubin 0.4 (0.0-1.2) mg/dL AST 30 (5-34) Units/L ALT 19 (0-55) Units/L Alkaline Phosphatase 48 (38-126) Units/L Creatine Kinase 338 H (29-168) Units/L Troponin I (0-0.03) ng/mL Serum Total Protein 7.4 (6.0-8.3) g/dL Albumin 4.2 (3.5-5.0) g/dL Globulin 3.2 (2.4-3.5) g/dL Albumin/Globulin Ratio 1.3 (1.1-2.2) Urine Color (Yellow) Urine Clarity (Clear) Urine pH (5.0-8.0) pH Units Ur Specific [place] (1.010-1.025) Urine Protein (Neg-Trace) mg/dL Urine Glucose (UA) (Normal) mg/dL Urine Ketones (Negative) mg/dL Urine Blood (Negative) Urine Nitrite (Negative) Urine Bilirubin (Negative) Urine Urobilinogen (Normal) mg/dL Ur Leukocyte Esterase (Negative) Urine Microscopic RBC (0-3) per hpf Urine Microscopic WBC (0-3) per hpf Ur Squamous Epith Cells (None-Few) per lpf Urine Bacteria (None-Few) per hpf Hyaline Casts (None-Few) per lpf Ur Culture Indicated? (NO) Acetaminophen < 1.0 L (10-30) mcg/mL Ethyl Alcohol < 10 (0-10) mg/dL 09/07/17 09/07/17 Range/Units 21:50 23:06 WBC (4.3-11.1) K/mcL RBC (3.82-4.97) M/mcL Hgb (11.5-15.4) g/dL Hct (35.3-44.9) % MCV (83.0-100.0) fL MCH (28.0-33.3) pg MCHC (31.6-35.5) g/dL RDW (11.5-14.5) % Plt Count (140-400) K/mcL MPV (9.4-12.4) fL Immature Gran % (0-4) % Seg Neutrophils % % Lymphocytes % % Monocytes % % Eosinophils % % Basophils % % Neutrophils # (1.6-8.9) K/mcL Lymphocytes # (0.6-4.6) K/mcL Monocytes # (0.0-1.3) K/mcL Eosinophils # (0.0-0.6) K/mcL Basophils # (0.0-0.2) K/mcL PT (9.4-12.1) Seconds INR APTT (26.0-36.0) Seconds Sodium (136-145) mEq/L Potassium (3.5-4.5) mEq/L Chloride (98-109) mEq/L Carbon Dioxide (19-29) mEq/L BUN (7-20) mg/dL Creatinine (0.57-1.11) mg/dL Est GFR ( Amer) (> 60) Est GFR (Non-Af Amer) (> 60) BUN/Creatinine Ratio (6-26) Glucose (70-99) mg/dL Calculated Osmolality (280-300) Calcium (8.6-10.8) mg/dL Total Bilirubin (0.2-1.2) mg/dL Direct Bilirubin (0.0-0.5) mg/dL Indirect Bilirubin (0.0-1.2) mg/dL AST (5-34) Units/L ALT (0-55) Units/L Alkaline Phosphatase (38-126) Units/L Creatine Kinase (29-168) Units/L Troponin I 0.02 (0-0.03) ng/mL Serum Total Protein (6.0-8.3) g/dL Albumin (3.5-5.0) g/dL Globulin (2.4-3.5) g/dL Albumin/Globulin Ratio (1.1-2.2) Urine Color Yellow (Yellow) Urine Clarity Clear (Clear) Urine pH 6.0 (5.0-8.0) pH Units Ur Specific [place] 1.017 (1.010-1.025) Urine Protein Negative (Neg-Trace) mg/dL Urine Glucose (UA) Normal (Normal) mg/dL Urine Ketones Trace H (Negative) mg/dL Urine Blood Negative (Negative) Urine Nitrite Negative (Negative) Urine Bilirubin Negative (Negative) Urine Urobilinogen Normal (Normal) mg/dL Ur Leukocyte Esterase Large H (Negative) Urine Microscopic RBC 3-5 H (0-3) per hpf Urine Microscopic WBC 15-30 H (0-3) per hpf Ur Squamous Epith Cells Many H (None-Few) per lpf Urine Bacteria None Seen (None-Few) per hpf Hyaline Casts None Seen (None-Few) per lpf Ur Culture Indicated? YES A (NO) Acetaminophen (10-30) mcg/mL Ethyl Alcohol (0-10) mg/dL - Radiology Data Radiology results reviewed: Yes I reviewed the patient's radiology results. - EKG Data EKG attestation: Yes I reviewed and interpreted this EKG. EKG results narrative: EKG done at 2136 and reviewed by myself and the attending shows normal sinus rhythm at a rate of 91, ND interval 148, QRS 86, QTC 394 with a leftward axis. There is no acute ST changes, T-wave changes. No signs of any heart blocks or hypertrophy. No signs of the WPW/Brugada syndrome. EKG shows normal: sinus rhythm, intervals, QRS complexes, ST-T waves Rate: normal Rhythm: NSR [place]/QRS: normal When compared to previous EKG there are: no significant changes Interpretation: no acute changes, normal EKG Attestation Statement - Attestation Attestation: I, Pk Loredo, examined this patient and my medical decision-making was reviewed with the FILM PROCESSING SHIFT SUPERVISOR/PA/Advanced Practice Nurse/Resident Physician. I agree with the documented findings, disposition and treatment plan as described except to the extent set forth below. 82-year-old female presents emergency Department with concerns of confusion and acute onset weakness. Son states patient has fallen multiple times over the past few days, he was called by the [employer] responded to an alert by the patient 's house alarm. [employer] stooled the son that the patient was crawling on the ground unable to ambulate. Patient is unable to give a history regarding her case and presentation. Son states patient was last seen normal yesterday during the day. Patient reports that her left lower extremity was extremely weak and she was unable to ambulate. Son states that she was unable to do her daily type of activities such as ambulation and programming her alarm for the house. Son denies any recent changes in patient's medications. Patient does take xarelto. On my physical exam the patient does not have any focal neurologic deficits. CT of the head and neck was negative for acute intracranial hemorrhage or fracture. Urinalysis was questionable for urinary tract infection and we will wait for culture results. Patient had a mildly elevated CPK likely from being on the floor for a prolonged period of time. Patient will be admitted to the hospital for further care and evaluation.
[2017-09-07 21:59] LABS: Basophils % 0.3 %; Eosinophils % 0.2 %; Hematocrit 42.7 % (35.3-44.9); Hemoglobin 14.6 g/dL (11.5-15.4); Immature Granulocytes % 0.4 % (0-4); Lymphocytes # 1.4 K/mcL (0.6-4.6); Lymphocytes % 11.1 %; Mean Corpuscular HGB Conc 34.2 g/dL (31.6-35.5); Mean Corpuscular Hemoglobin 31.1 pg (28.0-33.3); Mean Platelet Volume 10.8 fL (9.4-12.4); Monocytes % 8.2 %; Platelet Count 246 K/mcL (140-400); Red Blood Count 4.69 M/mcL (3.82-4.97); Red Cell Distribution Width 12.2 % (11.5-14.5); Segmented Neutrophils % 79.8 %
[2017-09-07 22:04] LABS: INR 1.3
[2017-09-07 22:07] LABS: Activated Partial Thrombo Time 36.3 Seconds (26.0-36.0)
[2017-09-07 22:16] LABS: Alanine Aminotransferase 19 Units/L (0-55); Albumin 4.2 g/dL (3.5-5.0); Albumin/Globulin Ratio 1.3 (1.1-2.2); Alkaline Phosphatase 48 Units/L (38-126); Aspartate Amino Transferase 30 Units/L (5-34); BUN/Creatinine Ratio 33 (6-26); Bilirubin,Direct 0.2 mg/dL (0.0-0.5); Bilirubin,Indirect 0.4 mg/dL (0.0-1.2); Bilirubin,Total 0.6 mg/dL (0.2-1.2); Blood Urea Nitrogen 25 mg/dL (7-20); Calcium 9.9 mg/dL (8.6-10.8); Carbon Dioxide 27 mEq/L (19-29); Chloride 105 mEq/L (98-109); Creatine Kinase 338 Units/L (29-168); Globulin 3.2 g/dL (2.4-3.5); Glucose 111 mg/dL (70-99); Osmolality,Calculated 299 (280-300); Potassium 3.9 mEq/L (3.5-4.5); Sodium 142 mEq/L (136-145); Total Protein 7.4 g/dL (6.0-8.3); eGFR For African Americans > 60 (> 60); eGFR For Non-African Americans > 60 (> 60)
[2017-09-07 22:17] LABS: Acetaminophen < 1.0 mcg/mL (10-30); Ethanol < 10 mg/dL (0-10)
[2017-09-07 23:32] LABS: Bilirubin,Urine Negative (Negative); Blood,Urine Negative (Negative); Clarity,Urine Clear (Clear); Color,Urine Yellow (Yellow); Glucose,Urine (UA) Normal (Normal); Ketones,Urine Trace mg/dL (Negative); Leukocyte Esterase,Urine Large (Negative); Nitrite,Urine Negative (Negative); Protein,Urine Negative (Neg-Trace); Specific Gravity,Urine 1.017 (1.010-1.025); Urobilinogen,Urine Normal (Normal)
[2017-09-07 23:35] LABS: Bacteria,Urine None Seen per hpf (None-Few); Hyaline Casts,Urine None Seen per lpf (None-Few); Squamous Epithelial Cell,Urine Many per lpf (None-Few); WBC,Urine 15-30 per hpf (0-3)
--- NOTE | 2017-09-08 02:41 | Internal Med History&Physical ---
Date of Encounter: 09/08/17 Time of Encounter: 02:43 Assessment and Plan (1) UTI (urinary tract infection) Current visit: Yes Status: Acute I will start the patient on levofloxacin. Check urine culture. Qualifiers: Qualified Code(s): N39.0 - Urinary tract infection, site not specified; R31.9 - Hematuria, unspecified; R31.9 - Hematuria, unspecified (2) Metabolic encephalopathy Current visit: Yes Status: Acute Due to UTI and dehydration. CT scan of the head shows no acute pathology. She has no focal neurological deficits on exam. She was hydrated and emergency room. She was alert oriented times 3 during my interview. (3) Diarrhea Current visit: Yes Status: Acute Will check stool studies. Denies being on any antibiotics recently. Qualifiers: Qualified Code(s): R19.7 - Diarrhea, unspecified Internal Medicine - H&P: HPI Chief complaint: weakness, fall History of present illness: Ms. Hubbard is a 82 year old female with history of hypertension, prior TIA presents to the emergency room today after all. Patient mentioned that for the past couple days she has been feeling lethargic. She had a fall today does not recall the exact circumstances of default. She said that she was ironing felt some numbness in the left leg fell backwards and hit her head. She denies loss of consciousness. She feels that she is weak all over without focal weakness. Patient mentioned that she had several loose bowel movements today. She denies any recent antibiotic use. No fevers chills. Patient was reportedly confused honorable to emergency room however during my interview she was alert oriented times 3 without any confusion Past Med Surg Social Fam HX - Past Medical History Medical history: arthritis, CVA, diabetes, hyperlipidemia, hypertension, osteoporosis, TIA, other Psychiatric history: anxiety, other - Past Surgical History Surgical History: pacemaker/AICD, other, AICD, pacemaker - Social History Smoking Status: Never smoker Smokeless Tobacco Status: No Alcohol use: none Drug use: none - Family History Mother Adopted: [place]: [place] Family Member Ethnicity: Non- Living Status: Age at : 98 Cause of : natural Hx Family Cardiac Disorders: Yes Hx Family Endocrine Disorder: Yes Hx Family Neurologic Disorders: Yes (cva) Father Adopted: [place]: [place] Family Member Ethnicity: Non- Living Status: Age at : 84 Cause of : natural Hx Family Cardiac Disorders: Yes (HTN) Internal Medicine - H&P: Meds Cholecalciferol (Vitamin D3) [Vitamin D3] 5,000 unit PO DAILY 03/06/17 [History] Magnesium Oxide [Magnesium] 500 mg PO DAILY 03/06/17 [History] [place]-3/Dha/Epa/Fish Oil [Fish Oil 1,000 mg Softgel] 1,000 mg PO DAILY 03/06/17 [History] Rivaroxaban [Xarelto] 10 mg PO 1700 03/06/17 [History] clonazePAM [Klonopin] 0.5 mg PO BID 03/06/17 [History] Patient Taking Own Medication 1 each PO DAILY each 03/08/17 [Rx] 3 Allergy/AdvReac Type Severity Reaction Status Date / Time Penicillins AdvReac Hives Verified 09/07/17 21:03 All Systems PM: A 10-system review of systems was performed and is negative for pertinent findings except as documented above in the HPI. Review of systems: 10 point review of systems is negative except for HPI - Constitutional Vitals: Temp Pulse Resp BP Pulse Ox 97.8 F 82 16 150/81 99 09/08/17 00:34 09/08/17 00:34 09/08/17 00:34 09/08/17 00:34 09/08/17 00:34 Exam: Gen.: patient is alert oriented times 3 not in distress cardiac: Normal S1, S2, no additional sounds or murmurs chest: Clear to auscultation Abdomen: Soft, nontender, non distended. No rebound lower extremity Lax calf muscles no swelling Neuro: no focal deficits Internal Med - H&P Results - Labs CBC & Chem 7: 09/07/17 21:50 09/07/17 21:50
[2017-09-08] MEDS: 0.9 % Sodium Chloride 1,000 ML IVC SCH (03:24)
[2017-09-08 05:29] LABS: Basophils % 0.4 %; Eosinophils # 0.1 K/mcL (0.0-0.6); Eosinophils % 1.2 %; Hematocrit 38.1 % (35.3-44.9); Hemoglobin 12.7 g/dL (11.5-15.4); Immature Granulocytes % 0.3 % (0-4); Lymphocytes # 1.9 K/mcL (0.6-4.6); Lymphocytes % 20.3 %; Mean Corpuscular HGB Conc 33.3 g/dL (31.6-35.5); Mean Corpuscular Hemoglobin 30.6 pg (28.0-33.3); Mean Corpuscular Volume 91.8 fL (83.0-100.0); Mean Platelet Volume 11.4 fL (9.4-12.4); Monocytes # 0.9 K/mcL (0.0-1.3); Monocytes % 10.1 %; Neutrophils # 6.2 K/mcL (1.6-8.9); Platelet Count 213 K/mcL (140-400); Red Blood Count 4.15 M/mcL (3.82-4.97); Red Cell Distribution Width 12.3 % (11.5-14.5); Segmented Neutrophils % 67.7 %
[2017-09-08] MEDS: Famotidine 20 MG/2 ML VIAL IVP SCH ×3 (05:39→19:57)
[2017-09-08 05:45] LABS: BUN/Creatinine Ratio 30 (6-26); Blood Urea Nitrogen 19 mg/dL (7-20); Calcium 9.1 mg/dL (8.6-10.8); Carbon Dioxide 25 mEq/L (19-29); Chloride 110 mEq/L (98-109); Glucose 93 mg/dL (70-99); Magnesium 2.1 mg/dL (1.6-2.6); Osmolality,Calculated 296 (280-300); Potassium 3.6 mEq/L (3.5-4.5); Sodium 142 mEq/L (136-145); eGFR For African Americans > 60 (> 60); eGFR For Non-African Americans > 60 (> 60)
[2017-09-08] MEDS: Levofloxacin 750 MG/150 ML 750 MG/150 ML BAG IVPB SCH (09:07)
[2017-09-08] MEDS: Acetaminophen 325 MG TABLET PO PRN (09:41)
--- NOTE | 2017-09-08 11:14 | Internal Med Progress Note ---
Date of Encounter: 09/08/17 Time of Encounter: 10:30 - Assessment and plan (1) UTI (urinary tract infection) Current Visit: Yes Status: Acute Assessment and plan: Patient found to have an UTI in the emergency department. Trace amount of ketones, large amount leukocyte esterase, 3-5 microscopic red cells, 15-30 microscopic white cells and no bacteria seen. Urine culture is pending. She denies any urinary symptoms or abdominal pain. Continue IV fluid hydration Continue Levaquin IV. Qualifiers: Urinary tract infection type: acute cystitis Hematuria presence: without hematuria Qualified Code(s): N30.00 - Acute cystitis without hematuria (2) Metabolic encephalopathy Current Visit: Yes Status: Acute Assessment and plan: Most likely due to UTI and dehydration. Patient denies any confusion ever. She is alert and oriented 3 today, speech normal for patient. CT head was negative. She is neurologically intact. Continue IV fluid hydration Up with assistance Monitor labs and patient condition. (3) Diarrhea Current Visit: Yes Status: Acute Assessment and plan: Patient reports 1 day history of diarrhea at home. Stool studies pending. Stool occult blood is also pending. Abdomen is soft and nontender with hyperactive bowel sounds. Imodium when necessary. Monitor labs. IV fluid hydration. Qualifiers: Qualified Code(s): R19.7 - Diarrhea, unspecified (4) Falls Current Visit: Yes Status: Acute Assessment and plan: Patient reports 2 falls the last 2 days. Patient reports one fall while she was ironing. She said she became weak and fell backwards. Did not hit her head or lose consciousness. Patient reports second fall yesterday while in the shower. She reports that she has never fallen in the shower before and states that she just slipped. She denies any injuries, did not hit her head denied loss of consciousness. PT and OT consultations are in and pending Cervical Spine CT 09/07/17 21:29 IMPRESSION: No acute abnormality of the cervical spine. D/ / Bipin Good MD / Bipin Good MD Interpreting Provider: Bipin Good MD Chest X-Ray 09/07/17 21:29 IMPRESSION: No acute cardiopulmonary disease. D/ / Roman Naik MD / Roman Naik MD Interpreting Provider: Roman Naik MD Head CT 09/07/17 21:29 IMPRESSION: No acute intracranial abnormality. D/ / Neville King MD / Neville King MD Interpreting Provider: Neville King MD Pelvis X-Ray 09/07/17 21:30 IMPRESSION: No evidence of an acute fracture. 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 D/ / Roman Naik MD / Roman Naik MD Interpreting Provider: Roman Naik MD Qualifiers: Encounter type: initial encounter Qualified Code(s): W19.XXXA - Unspecified fall, initial encounter (5) Weakness Current Visit: Yes Status: Acute Assessment and plan: Patient reports feeling increased weakness over the last few days. Encourage early ambulation if patient is able, with assistance. Continue IV fluid hydration, monitor for results of urine culture, monitor daily labs. Physical therapy and occupational therapy consultations or an impending. Fall precautions and bed alarm. (6) DVT prophylaxis Current Visit: No Status: Acute Assessment and plan: SCD, pt up with assistance and to chair. - Time Spent With Patient less than 15 minutes - Subjective Interval history: Pt was seen and assessed at 1030. She was alert, oriented, denies headache, blurred vision, SOB, abdominal pain. She reports nausea currently due to taking her pills on an empty stomach this a.m. Pt had a bs swallow eval and passed and was given food to help with nausea. She reports falls at home over the last 2 days and feels sore. She denies confusion at any point. Reports 2 day history of diarrhea at home. - Constitutional Vitals: Temp Pulse Resp BP Pulse Ox 97.9 F 93 16 183/75 100 09/08/17 11:00 09/08/17 11:00 09/08/17 11:00 09/08/17 11:00 09/08/17 11:00 General appearance: Present: A&O X 3, pleasant, no acute distress, answers questions appropriately - Head Head exam: Present: atraumatic, normal inspection, normocephalic - Eye Eye exam: Present: normal appearance, conjuntiva pink, sclera anicteric - Neck Neck exam general surgery: Present: normal inspection, supple, trachea midline. Absent: tenderness - Respiratory Respiratory exam: Present: CTAB. Absent: accessory muscle use, chest wall tenderness, rales, respiratory distress, rhonchi, wheezes - Cardiovascular Cardiovascular exam: Present: RRR, +S1, +S2. Absent: diastolic murmur, gallop, rubs, systolic murmur - GI/Abdominal GI/Abdominal exam: Present: hyperactive bowel sounds, soft. Absent: distended, hepatomegaly, tenderness - Extremities Exam Extremities exam: Present: normal capillary refill, normal inspection, warm, radial pulses palpable and symmetrical. Absent: calf tenderness, cyanotic, pedal edema - Neurological Exam Neurological exam: Present: alert, CN II-XII intact, oriented X3, no focal deficits, strengths equal and symetr throughout. Absent: facial droop, speech deficit - Skin Skin exam: Present: dry, intact, normal color, warm. Absent: rash Internal Medicine: Result - Labs CBC & Chem 7: 09/08/17 04:03 09/08/17 04:03 Labs: Short CBC 09/08/17 Range/Units 04:03 WBC 9.1 (4.3-11.1) K/mcL Hgb 12.7 D (11.5-15.4) g/dL Hct 38.1 (35.3-44.9) % Plt Count 213 (140-400) K/mcL Neutrophils # 6.2 (1.6-8.9) K/mcL BMP 09/08/17 04:03 Sodium 142 Potassium 3.6 Chloride 110 H Carbon Dioxide 25 BUN 19 Creatinine 0.63 Glucose 93 Calcium 9.1 - ABG Interpretation ABG results: PT/INR, D-dimer PT 14.0 Seconds (9.4-12.1) H 09/07/17 21:50 Consult Discharge Plan - Plan Referrals: Nancy Diane, [facility] [Primary Care Provider] -
[2017-09-08] MEDS: Lisinopril 20 MG TABLET PO SCH (11:42)
[2017-09-08] MEDS: Magnesium Oxide 400 MG TABLET PO SCH (11:42)
[2017-09-08] MEDS: clonazePAM 0.5 MG TABLET PO PRN ×2 (11:42→19:48)
[2017-09-08] MEDS: (Omega-3/Dha/Epa/Fish Oil [Fish Oil 1,000 Mg Softgel]) PO SCH (11:43)
[2017-09-08] MEDS: *HR* Rivaroxaban 10 MG TABLET PO SCH (17:25)
[2017-09-09] MEDS: 0.9 % Sodium Chloride 1,000 ML IVC SCH (01:13)
[2017-09-09] MEDS: Famotidine 20 MG/2 ML VIAL IVP SCH ×2 (05:03→17:33)
[2017-09-09 05:52] LABS: Basophils # 0.1 K/mcL (0.0-0.2); Basophils % 0.6 %; Eosinophils # 0.1 K/mcL (0.0-0.6); Eosinophils % 1.5 %; Hematocrit 38.2 % (35.3-44.9); Hemoglobin 12.6 g/dL (11.5-15.4); Immature Granulocytes % 0.4 % (0-4); Lymphocytes # 2.5 K/mcL (0.6-4.6); Lymphocytes % 28.6 %; Mean Corpuscular Hemoglobin 30.2 pg (28.0-33.3); Mean Corpuscular Volume 91.6 fL (83.0-100.0); Monocytes # 0.8 K/mcL (0.0-1.3); Monocytes % 8.8 %; Neutrophils # 5.4 K/mcL (1.6-8.9); Platelet Count 211 K/mcL (140-400); Red Blood Count 4.17 M/mcL (3.82-4.97); Red Cell Distribution Width 12.3 % (11.5-14.5); Segmented Neutrophils % 60.1 %
[2017-09-09 05:58] LABS: BUN/Creatinine Ratio 25 (6-26); Blood Urea Nitrogen 21 mg/dL (7-20); Calcium 9.2 mg/dL (8.6-10.8); Carbon Dioxide 23 mEq/L (19-29); Chloride 111 mEq/L (98-109); Glucose 98 mg/dL (70-99); Osmolality,Calculated 295 (280-300); Potassium 3.6 mEq/L (3.5-4.5); Sodium 141 mEq/L (136-145); eGFR For African Americans > 60 (> 60); eGFR For Non-African Americans > 60 (> 60)
[2017-09-09] MEDS: Acetaminophen 325 MG TABLET PO PRN (07:03)
[2017-09-09 08:14] LABS: Bilirubin,Urine Negative (Negative); Blood,Urine Negative (Negative); Clarity,Urine Clear (Clear); Color,Urine Yellow (Yellow); Glucose,Urine (UA) Normal (Normal); Ketones,Urine Negative (Negative); Leukocyte Esterase,Urine Small (Negative); Nitrite,Urine Negative (Negative); PH,Urine 6.5 pH Units (5.0-8.0); Protein,Urine Negative (Neg-Trace); Specific Gravity,Urine 1.021 (1.010-1.025); Urobilinogen,Urine Normal (Normal)
[2017-09-09 08:16] LABS: Bacteria,Urine None Seen per hpf (None-Few); Hyaline Casts,Urine None Seen per lpf (None-Few); Squamous Epithelial Cell,Urine Many per lpf (None-Few); WBC,Urine 15-30 per hpf (0-3)
[2017-09-09] MEDS: clonazePAM 0.5 MG TABLET PO PRN ×2 (08:33→19:56)
[2017-09-09] MEDS: Lisinopril 20 MG TABLET PO SCH (08:33)
[2017-09-09] MEDS: Cholecalciferol (D-3) 1,000 UNIT TABLET PO SCH (08:34)
[2017-09-09] MEDS: (Omega-3/Dha/Epa/Fish Oil [Fish Oil 1,000 Mg Softgel]) PO SCH (08:34)
[2017-09-09] MEDS: Levofloxacin 750 MG/150 ML 750 MG/150 ML BAG IVPB SCH (08:35)
[2017-09-09] MEDS: Magnesium Oxide 400 MG TABLET PO SCH ×2 (08:45→19:56)
--- NOTE | 2017-09-09 12:42 | Internal Med Progress Note ---
Date of Encounter: 09/09/17 Time of Encounter: 09:15 - Assessment and plan (1) UTI (urinary tract infection) Current Visit: Yes Status: Acute Assessment and plan: Patient found to have an UTI in the emergency department. Trace amount of ketones, large amount leukocyte esterase, 3-5 microscopic red cells, 15-30 microscopic white cells and no bacteria seen. Urine culture was mixed and could not be interpreted appropriately. She denies any urinary symptoms or abdominal pain. I have reordered the UA. Continue IV fluid hydration Continue Levaquin IV. Qualifiers: Urinary tract infection type: acute cystitis Hematuria presence: without hematuria Qualified Code(s): N30.00 - Acute cystitis without hematuria (2) Metabolic encephalopathy Current Visit: Yes Status: Acute Assessment and plan: Most likely due to UTI and dehydration. Patient denies any confusion ever. She remains alert and oriented 3 today, speech normal for patient. CT head was negative. She is neurologically intact. Pt at times does seem to ask inappropriate questions and answer inappropriately despite being A/O x 3. Pt with baseline dementia, most likely at her baseline. Continue IV fluid hydration Up with assistance Monitor labs and patient condition. (3) Diarrhea Current Visit: Yes Status: Acute Assessment and plan: Patient reports 1 day history of diarrhea at home. Stool studies pending and stool occult blood pending and remain uncollcted. Abdomen is soft and nontender with hyperactive bowel sounds. Pt has had no diarrhea since arrival. Imodium when necessary. Monitor labs. IV fluid hydration. Qualifiers: Qualified Code(s): R19.7 - Diarrhea, unspecified (4) Falls Current Visit: Yes Status: Acute Assessment and plan: Patient reports 2 falls the 2 days prior to admission. Patient reports one fall while she was ironing. She said she became weak and fell backwards. Did not hit her head or lose consciousness. Patient reports second fall yesterday while in the shower. She reports that she has never fallen in the shower before and states that she just slipped. She denies any injuries, did not hit her head denied loss of consciousness. PT and OT consultations are in and pending Pt reports and appears to be weak. States that she has been becoming increasingly weak for several years and "no one would listen to me." Will wait on PT/OT results. Cervical Spine CT 09/07/17 21:29 IMPRESSION: No acute abnormality of the cervical spine. D/ / Bipin Good MD / Bipin Good MD Interpreting Provider: Bipin Good MD Chest X-Ray 09/07/17 21:29 IMPRESSION: No acute cardiopulmonary disease. D/ / Roman Naik MD / Roman Naik MD Interpreting Provider: Roman Naik MD Head CT 09/07/17 21:29 IMPRESSION: No acute intracranial abnormality. D/ / Neville King MD / Neville King MD Interpreting Provider: Neville King MD Pelvis X-Ray 09/07/17 21:30 IMPRESSION: No evidence of an acute fracture. 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 D/ / Roman Naik MD / Roman Naik MD Interpreting Provider: Roman Naik MD Qualifiers: Encounter type: initial encounter Qualified Code(s): W19.XXXA - Unspecified fall, initial encounter (5) Weakness Current Visit: Yes Status: Acute Assessment and plan: Patient reports feeling increased weakness over the last few days/years. Encourage early ambulation if patient is able, with assistance. Continue IV fluid hydration, monitor for results of urine culture, monitor daily labs. Physical therapy and occupational therapy consultations pending. Fall precautions and bed alarm. (6) DVT prophylaxis Current Visit: No Status: Acute Assessment and plan: SCD, pt up with assistance and to chair. - Time Spent With Patient less than 15 minutes - Subjective Interval history: Pt was seen and assessed at 0915. She was alert, seated in a chair at bedside, denies headache, blurred vision, SOB, abdominal pain. Shestill denies confusion at any point, however, within about 1 minute of me discussing her plan of care with her and telling her that she needs to see PT/OT tomorrow, she asks if she is going home in a minute. Pt states today that she is so weak that she can't turn over in the bed. She tells me that this is how her previous CVA started, MRI ordered per her request, despite scoring 0 on all NIH per RN. She was very weak and appeared to have difficulty even leaning forward in the chair so I could auscultate posterior lung sounds. - Constitutional Vitals: Temp Pulse Resp BP Pulse Ox 97.9 F 57 16 123/62 97 09/09/17 06:52 09/09/17 06:52 09/09/17 06:52 09/09/17 06:52 09/09/17 06:52 General appearance: Present: cooperative, A&O X 3, pleasant, no acute distress, answers questions appropriately - Head Head exam: Present: atraumatic, normal inspection, normocephalic - Eye Eye exam: Present: normal appearance, conjuntiva pink, sclera anicteric - Neck Neck exam general surgery: Present: supple, trachea midline. Absent: lymphadenopathy, tenderness - Respiratory Respiratory exam: Present: CTAB. Absent: accessory muscle use, chest wall tenderness, rales, rhonchi, wheezes - Cardiovascular Cardiovascular exam: Present: RRR, +S1, +S2. Absent: diastolic murmur, gallop, rubs, systolic murmur - GI/Abdominal GI/Abdominal exam: Present: normal bowel sounds, soft. Absent: distended, hepatomegaly, tenderness - Extremities Exam Extremities exam: Present: normal capillary refill, warm, radial pulses palpable and symmetrical. Absent: calf tenderness, cyanotic, pedal edema, tenderness - Neurological Exam Neurological exam: Present: alert, oriented X3, no focal deficits, strengths equal and symetr throughout. Absent: pronater drift, facial droop, speech deficit - Skin Skin exam: Present: dry, intact, normal color, warm. Absent: rash Internal Medicine: Result - Labs CBC & Chem 7: 09/09/17 05:10 09/09/17 05:10 Labs: Short CBC 09/09/17 Range/Units 05:10 WBC 8.9 (4.3-11.1) K/mcL Hgb 12.6 (11.5-15.4) g/dL Hct 38.2 (35.3-44.9) % Plt Count 211 (140-400) K/mcL Neutrophils # 5.4 (1.6-8.9) K/mcL BMP 09/09/17 05:10 Sodium 141 Potassium 3.6 Chloride 111 H Carbon Dioxide 23 BUN 21 H Creatinine 0.84 Glucose 98 Calcium 9.2 Urine 09/09/17 Range/Units 08:00 Urine Color Yellow (Yellow) Urine Clarity Clear (Clear) Urine pH 6.5 (5.0-8.0) pH Units Ur Specific [place] 1.021 (1.010-1.025) Urine Protein Negative (Neg-Trace) mg/dL Urine Glucose (UA) Normal (Normal) mg/dL - ABG Interpretation ABG results: PT/INR, D-dimer PT 14.0 Seconds (9.4-12.1) H 09/07/17 21:50 Consult Discharge Plan - Plan Referrals: Nancy Diane, [facility] [Primary Care Provider] -
[2017-09-09] MEDS: *HR* Rivaroxaban 10 MG TABLET PO SCH (17:31)
[2017-09-10] MEDS ORDERED: 0.9 % Sodium Chloride 1,000 ML ONE (04:18)
[2017-09-10] MEDS: Cholecalciferol (D-3) 1,000 UNIT TABLET PO SCH (08:30)
[2017-09-10] MEDS: Aspirin 81 MG TAB.CHEW PO SCH (08:30)
[2017-09-10] MEDS: Famotidine 20 MG/2 ML VIAL IVP SCH (08:31)
[2017-09-10] MEDS: clonazePAM 0.5 MG TABLET PO PRN ×2 (08:31→20:47)
[2017-09-10] MEDS: (Omega-3/Dha/Epa/Fish Oil [Fish Oil 1,000 Mg Softgel]) PO SCH (08:31)
[2017-09-10] MEDS: 0.9 % Sodium Chloride 1,000 ML IVC SCH ×2 (11:06→23:17)
[2017-09-10] MEDS: *HR* Rivaroxaban 10 MG TABLET PO SCH (15:52)
--- NOTE | 2017-09-10 16:51 | Internal Med Progress Note ---
Date of Encounter: 09/10/17 Time of Encounter: 15:00 - Assessment and plan (1) UTI (urinary tract infection) Current Visit: Yes Status: Acute Assessment and plan: Patient found to have an UTI in the emergency department. Trace amount of ketones, large amount leukocyte esterase, 3-5 microscopic red cells, 15-30 microscopic white cells and no bacteria seen. Urine culture was mixed and could not be interpreted appropriately x 2. She denies any urinary symptoms or abdominal pain. I have stopped antibiotics. Pt has no leukocytosis, fever, chills, back pain, or urinary symtpoms. Abd is soft and non-tender, BS present, no CVA tenderness. Qualifiers: Urinary tract infection type: acute cystitis Hematuria presence: without hematuria Qualified Code(s): N30.00 - Acute cystitis without hematuria (2) Metabolic encephalopathy Current Visit: Yes Status: Acute Assessment and plan: Most likely due to UTI and dehydration. Patient denies any confusion ever. She remains alert and oriented 3 today, speech normal for patient. CT head was negative. She is neurologically intact. Pt at times does seem to ask inappropriate questions and answer inappropriately despite being A/O x 3. Pt with baseline dementia, most likely at her baseline. Brain MRI showed acute microinfarcts within the right frontoparietal lobe. This could be contributing to patient's confusion, although she is at baseline with some dehydration. Up with assistance Monitor labs and patient condition. (3) Diarrhea Current Visit: Yes Status: Resolved Assessment and plan: Patient has had no diarrhea since arrival. Specimen was sent, it was rejected due to it being a formed stool. Resolved. Qualifiers: Diarrhea type: unspecified type Qualified Code(s): R19.7 - Diarrhea, unspecified (4) Falls Current Visit: Yes Status: Acute Assessment and plan: Patient reports 2 falls the 2 days prior to admission. Patient reports one fall while she was ironing. She said she became weak and fell backwards. Did not hit her head or lose consciousness. Patient reports second fall yesterday while in the shower. She reports that she has never fallen in the shower before and states that she just slipped. She denies any injuries, did not hit her head denied loss of consciousness. PT and OT consultations are in and pending Pt reports and appears to be weak. States that she has been becoming increasingly weak for several years and "no one would listen to me." PT and OT [facility]. Patient is not agreeable to this. She did agree for the referral with the condition that she was able to change her mind. 1A has been consulted to assist with assessing for patient's competency. Son is also on board with the patient going to long-term for rehabilitation. Cervical Spine CT 09/07/17 21:29 IMPRESSION: No acute abnormality of the cervical spine. D/ / Bipin Good MD / Bipin Good MD Interpreting Provider: Bipin Good MD Chest X-Ray 09/07/17 21:29 IMPRESSION: No acute cardiopulmonary disease. D/ / Roman Naik MD / Roman Naik MD Interpreting Provider: Roman Naik MD Head CT 09/07/17 21:29 IMPRESSION: No acute intracranial abnormality. D/ / Neville King MD / Neville King MD Interpreting Provider: Neville Kign MD Pelvis X-Ray 09/07/17 21:30 IMPRESSION: No evidence of an acute fracture. 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 D/ / Roman Naik MD / Roman Naik MD Interpreting Provider: Roman Naik MD Qualifiers: Encounter type: initial encounter Qualified Code(s): W19.XXXA - Unspecified fall, initial encounter (5) Weakness Current Visit: Yes Status: Acute Assessment and plan: Plan as above Fall precautions and bed alarm. (6) CVA (cerebral vascular accident) Current Visit: Yes Status: Acute Assessment and plan: Pt with remote and acute CVA. MRI today showed acute microinfarcts within the right frontoparietal lobe. Pt is already on Xarelto and Asa, as well as a statin. Per recommendation, I have consulted neuro for evaluation. She has no focal deficits, no change from her baseline. Echo with LVEF 65-70%, mild LV hypertrophy, mild LV DD, no significiant valvular dysfunction, trivial pericardial effusion without tamponade, and no evidence of PFO. Continue Xarelto, ASA, and statin. Continue telemetry MRA neck ordered and pending Head CT 09/07/17 21:29 IMPRESSION: No acute intracranial abnormality. D/ / Neville King MD / Neville King MD Interpreting Provider: Neville King MD Brain MRI 09/09/17 21:21 IMPRESSION: Acute microinfarcts within the right frontoparietal lobe. The findings were sent to the Radiology Results Communication Center at 10:37 pm on 09/09/2017to be communicated to a licensed caregiver. D/ / Payam Bird MD / Payam Bird MD Interpreting Provider: Payam Bird MD Echocardiogram 09/10/17 22:48 Impressions: LVEF 65-70%. Mild concentric left ventricular hypertrophy. Mild left ventricular diastolic dysfunction. Normal right ventricular structure and function. No significant valvular dysfunction. No pulmonary hypertension. There is a trivial pericardial effusion without tamponade. No evidence of PFO with agitated saline contrast. Left Ventricular Wall Motion: Rest Echo Findings All wall segments showed normal motion. Qualifiers: CVA mechanism: unspecified Qualified Code(s): I63.9 - Cerebral infarction, unspecified (7) Dementia Current Visit: Yes Status: Acute Assessment and plan: Son reports to me that pt has had drastic personality change and increase in dementia since last CVA. Pt appears to be alert and oriented, then asks questions or makes statements that appear to be in line with the rest of the conversation. Pt states that she has a neigbor who checks on her every few days and a son in [place] who calls her to check on her. Pts mentation does not appear to be clear enough to return home to care for herself safely in light of recent falls and confusion/dehydration. Qualifiers: Dementia type: unspecified type Dementia behavioral disturbance: without behavioral disturbance Qualified Code(s): F03.90 - Unspecified dementia without behavioral disturbance (8) DVT prophylaxis Current Visit: No Status: Acute Assessment and plan: SCD, pt up with assistance and to chair. - Time Spent With Patient less than 15 minutes - Subjective Interval history: Pt was seen and assessed at 1500. Pt remains weak and states that she feels tired and like she can't move in the bed. SITE ADMINISTRATOR and I spoke with pt today. PT/OT have recommended SNF for rehab. I have spoken with her son, Jignesh, who agrees that she needs rehab due to safety issues at home. Based on my own assessments, pt is unsafe to return home. She does not have any consistent care or contacts with friends or family to warrant sending her home. Pt was agreeable to referral being made to [facility] for rehab. Son reports that he would like for pt to have consult by , it is in and pending for tomorrow. Pt denies n/v/d, headache, blurred vision, chest pain, SOB, or dizziness. - Constitutional Vitals: Temp Pulse Resp BP Pulse Ox 97.9 F 77 16 182/96 98 09/10/17 16:20 09/10/17 16:20 09/10/17 16:20 09/10/17 16:20 09/10/17 16:20 General appearance: Present: cooperative, A&O X 3, pleasant, no acute distress, answers questions appropriately - Head Head exam: Present: atraumatic, normal inspection, normocephalic - Eye Eye exam: Present: normal appearance, conjuntiva pink, sclera anicteric - Neck Neck exam general surgery: Present: supple, trachea midline. Absent: lymphadenopathy, tenderness - Respiratory Respiratory exam: Present: CTAB. Absent: accessory muscle use, chest wall tenderness, rales, rhonchi, wheezes - Cardiovascular Cardiovascular exam: Present: RRR, +S1, +S2. Absent: diastolic murmur, gallop, rubs, systolic murmur - GI/Abdominal GI/Abdominal exam: Present: normal bowel sounds, soft. Absent: distended, tenderness - Extremities Exam Extremities exam: Present: normal inspection, warm, radial pulses palpable and symmetrical. Absent: calf tenderness, cyanotic, pedal edema, tenderness - Neurological Exam Neurological exam: Present: alert, oriented X3, no focal deficits - Skin Skin exam: Present: dry, intact, normal color, warm. Absent: rash Internal Medicine: Result - Labs CBC & Chem 7: 09/09/17 05:10 09/09/17 05:10 - ABG Interpretation ABG results: PT/INR, D-dimer PT 14.0 Seconds (9.4-12.1) H 09/07/17 21:50 - Impressions Impressions Brain MRI 09/09/17 21:21 IMPRESSION: Acute microinfarcts within the right frontoparietal lobe. The findings were sent to the Radiology Results Communication Center at 10:37 pm on 09/09/2017to be communicated to a licensed caregiver. D/ / Payam Bird MD / Payam Bird MD Interpreting Provider: Payam Bird MD Echocardiogram 09/10/17 22:48 Impressions: LVEF 65-70%. Mild concentric left ventricular hypertrophy. Mild left ventricular diastolic dysfunction. Normal right ventricular structure and function. No significant valvular dysfunction. No pulmonary hypertension. There is a trivial pericardial effusion without tamponade. No evidence of PFO with agitated saline contrast. Left Ventricular Wall Motion: Rest Echo Findings All wall segments showed normal motion. Findings: Study Quality * Technically adequate exam. ECG Findings * Normal sinus rhythm. Left Ventricle * Mild concentric left ventricular hypertrophy. * Mild left ventricular diastolic dysfunction. * LVEF 65-70%. * LVOT was not fully interrogated. Right Ventricle * Normal right ventricular structure and function. Left Atrium * Mildly dilated left atrium. Right Atrium * Normal right atrial size. Aortic Valve * No aortic regurgitation. * Aortic valve not well visualized. * No aortic stenosis. Mitral Valve * Normal mitral valve structure. * No mitral regurgitation. * No mitral stenosis. Tricuspid Valve * Tricuspid valve not well visualized. * Trace tricuspid regurgitation. * Estimated RA pressure is 3 mmHg. * Estimated RVSP is 23 mmHg. * No pulmonary hypertension. Pulmonic Valve * Pulmonic valve is not well visualized. * No pulmonic stenosis. * No pulmonic regurgitation. Pulmonary Artery * Pulmonary artery not well visualized. Aorta * Normally sized aortic root. Pericardium * There is a trivial pericardial effusion present. Interatrial Septum * No evidence of PFO by color Doppler. * No evidence of PFO with agitated saline contrast. IVC * Normal IVC dimensions and inspiratory collapse. Consult Discharge Plan - Plan Referrals: Nancy Diane, [facility] [Primary Care Provider] -
[2017-09-10] MEDS: Magnesium Oxide 400 MG TABLET PO SCH (20:44)
[2017-09-11 03:08] LABS: Basophils # 0.1 K/mcL (0.0-0.2); Basophils % 0.6 %; Eosinophils # 0.2 K/mcL (0.0-0.6); Eosinophils % 2.4 %; Hematocrit 36.6 % (35.3-44.9); Hemoglobin 12.4 g/dL (11.5-15.4); Immature Granulocytes % 0.5 % (0-4); Lymphocytes # 2.3 K/mcL (0.6-4.6); Lymphocytes % 27.3 %; Mean Corpuscular HGB Conc 33.9 g/dL (31.6-35.5); Mean Corpuscular Hemoglobin 30.8 pg (28.0-33.3); Mean Platelet Volume 10.7 fL (9.4-12.4); Monocytes # 0.7 K/mcL (0.0-1.3); Monocytes % 8.5 %; Neutrophils # 5.1 K/mcL (1.6-8.9); Platelet Count 212 K/mcL (140-400); Red Blood Count 4.02 M/mcL (3.82-4.97); Red Cell Distribution Width 12.2 % (11.5-14.5); Segmented Neutrophils % 60.7 %
[2017-09-11 03:22] LABS: BUN/Creatinine Ratio 30 (6-26); Blood Urea Nitrogen 21 mg/dL (7-20); Calcium 8.9 mg/dL (8.6-10.8); Carbon Dioxide 24 mEq/L (19-29); Chloride 111 mEq/L (98-109); Glucose 105 mg/dL (70-99); Osmolality,Calculated 297 (280-300); Potassium 3.6 mEq/L (3.5-4.5); Sodium 142 mEq/L (136-145); eGFR For African Americans > 60 (> 60); eGFR For Non-African Americans > 60 (> 60)
[2017-09-11] MEDS: Aspirin 81 MG TAB.CHEW PO SCH (08:41)
[2017-09-11] MEDS: Cholecalciferol (D-3) 1,000 UNIT TABLET PO SCH (08:41)
[2017-09-11] MEDS: Famotidine 20 MG/2 ML VIAL IVP SCH (08:41)
[2017-09-11] MEDS ORDERED: Levofloxacin 500 MG/100 ML 500 MG/100 ML BAG IVPB SCH (09:00)
--- NOTE | 2017-09-11 10:08 | Neurology - Consult Note ---
Date of Encounter: 09/11/17 Time of Encounter: 07:40 Assessment and Plan (1) Acute lacunar infarction Current Visit: Yes Status: Acute This patient was admitted with some confusion and generalized weakness without any focal signs and symptoms to be suggestive of acute stroke but during the workup she was found to have a lacunar infarct in the right frontoparietal area At the same time she noted to have significant atherosclerotic disease throughout her brain on the MRA of the head MRA of the neck did not show any critical stenosis in the carotid. Echocardiogram has been reported as negative as well for any embolic source Patient noted to have significant intracranial atherosclerotic disease she has been maintained on an aspirin along with a stat and I suggested she should continue at the same time she is also on Xarelto though at this time it is not clear why she has been on xarelto, is no evidence of any atrial fibrillation. pt also not able to recall all velocities and an Hollow she has been on it perhaps be due to intracranial atherosclerotic disease that she had regardless at this time I would recommend that she should continue on both as long as she is able to tolerate it. Patient also noted to have a UTI that might be the reason for her confusion seems to resolve now she has been treated for it patient may benefit from short- term acute rehabilitation because of the generalized weakness Continue to monitor her blood pressure and continue to monitor for any cardiac arrhythmias other treatment is as per primary team (2) Altered mental status Current Visit: Yes Status: Acute Qualifiers: Altered mental status type: transient alteration of awareness Qualified Code(s): R40.4 - Transient alteration of awareness (3) UTI (urinary tract infection) Current Visit: Yes Status: Resolved Qualifiers: Urinary tract infection type: acute cystitis Hematuria presence: without hematuria Qualified Code(s): N30.00 - Acute cystitis without hematuria History of Present Illness HPI: Ms. Hubbard is a 82 year old female with history of hypertension, prior TIA presents to the emergency room today after Fall, ordering to the patient she was not feeling well for the past few days and noted to be very lethargic and weak , she did not loose consciousness feels weak and noted to be weak in the left leg while doing daily activities . She feels that she is weak all over without focal weakness. Patient mentioned that she had several loose bowel movements today. She denies any recent antibiotic use. No fevers chills. Patient was reportedly confused in the emergency room but not back to her baseline. As of workup she had an MRI of the brain that shows no evidence of microinfarct in the right frontoparietal lobe along with evidence of intra-cranial atherosclerosis on MRA of the head Past Med Surg Social Fam HX - Past Medical History Medical history: arthritis, CVA, diabetes, hyperlipidemia, hypertension, osteoporosis, TIA, other Psychiatric history: anxiety, other - Past Surgical History Surgical History: pacemaker/AICD, other, AICD, pacemaker - Social History Smoking Status: Never smoker Smokeless Tobacco Status: No Alcohol use: none Drug use: none - Family History Mother Adopted: [place]: [place] Family Member Ethnicity: Non- Living Status: Age at : 98 Cause of : natural Hx Family Cardiac Disorders: Yes Hx Family Endocrine Disorder: Yes Hx Family Neurologic Disorders: Yes (cva) Father Adopted: [place]: [place] Family Member Ethnicity: Non- Living Status: Age at : 84 Cause of : natural Hx Family Cardiac Disorders: Yes (HTN) Medications and Allergies Cholecalciferol (Vitamin D3) [Vitamin D3] 5,000 unit PO DAILY 03/06/17 [History] Magnesium Oxide [Magnesium] 500 mg PO DAILY 03/06/17 [History] [place]-3/Dha/Epa/Fish Oil [Fish Oil 1,000 mg Softgel] 1,000 mg PO DAILY 03/06/17 [History] Rivaroxaban [Xarelto] 20 mg PO DAILY 03/06/17 [History] clonazePAM [Klonopin] 0.5 mg PO BID PRN 03/06/17 [History] Lisinopril [Zestril] 10 mg PO DAILY 09/08/17 [History] 3 Allergy/AdvReac Type Severity Reaction Status Date / Time Penicillins Allergy Hives Verified 09/08/17 13:24 All Systems: A 10-system review of systems was performed and is negative for pertinent findings except as documented above in the HPI. Physical Examination - Vital Signs Vital Signs: Initial Vital Signs Temp Pulse Resp BP Pulse Ox 98.1 F 99 20 168/90 98 09/07/17 20:58 09/07/17 20:58 09/07/17 20:58 09/07/17 20:58 09/07/17 20:58 - Constitutional General appearance: comfortable - Neurologic Sensorimotor examination: intact Detailed motor examination: grossly full strength in all extremities Detailed sensory examination: intact Reflex and gait examination: intact Reflexes: Biceps: 1+, Triceps: 1+, Brachioradialis: 1+, Patella: 1+, Achilles: 1 + Mental Status Examination: awake, alert, oriented to person, oriented to place, oriented to time, follows commands appropriately, answers questions appropriately, follows simple commands, localizes noxious stimulation Cranial nerve examination: PERRL, EOMI, visual stinson intact, no facial asymmetry is present Results - Laboratory Findings CBC and BMP: 09/11/17 02:58 09/11/17 02:58 Abnormal lab findings: Abnormal lab results PT 14.0 Seconds (9.4-12.1) H 09/07/17 21:50 APTT 36.3 Seconds (26.0-36.0) H 09/07/17 21:50 Chloride 111 mEq/L (98-109) H 09/11/17 02:58 BUN 21 mg/dL (7-20) H 09/11/17 02:58 BUN/Creatinine Ratio 30 (6-26) H 09/11/17 02:58 Glucose 105 mg/dL (70-99) H 09/11/17 02:58 Creatine Kinase 338 Units/L (29-168) H 09/07/17 21:50 Ur Leukocyte Esterase Small (Negative) H 09/09/17 08:00 Urine Microscopic RBC 5-15 per hpf (0-3) H 09/09/17 08:00 Urine Microscopic WBC 15-30 per hpf (0-3) H 09/09/17 08:00 Ur Squamous Epith Cells Many per lpf (None-Few) H 09/09/17 08:00 Ur Culture Indicated? YES (NO) A 09/09/17 08:00 Acetaminophen < 1.0 mcg/mL (10-30) L 09/07/17 21:50 Consult Discharge Plan - Plan Referrals: Nancy Diane, [facility] [Primary Care Provider] -
[2017-09-11 11:08] VITALS: BP 153/77
--- NOTE | 2017-09-11 15:19 | Consult Note ---
Date of Encounter: 09/11/17 Time of Encounter: 14:00 Assessment & Recommendation (1) Altered mental status Current visit: Yes Status: Acute Assessment & Recommendation: Delirium on dementia. Status post CVA Competency evaluation cannot be completed at this time due to patient condition. Regarding discharge planning and disposition, the options are: 1. Emergency guardianship application 2. Working with the family to facilitate placement in nursing facility Thank you for consultation. Qualifiers: Altered mental status type: transient alteration of awareness Qualified Code(s): R40.4 - Transient alteration of awareness History of Present Illness Patient: new to practice Requesting Physician: Liz Washington CNP Reason for consult: Confusion, competency evaluation History of present illness: Ms. Hubbard is a 82 year old female admitted to the hospital after having fallen at home, found to have a new stroke. Patient had a long and complex medical history including hypertension, CVA multiple times, current UTI and behavioral changes after stroke. Psychotherapy was consulted to evaluate its competency to make decisions regarding her discharge from the hospital, patient was refusing to be placed in a long-term facility. Family reports that the Klonopin in her mental condition for the last few years after her first stroke. She is reported to live alone at home without immediate support. Currently patient is treated for UTI and been stabilized medically. 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 On exam patient presented as pleasantly confused elderly white female, her speech was disorganized and disconnected, she was able to answer basic questions like living at home by herself, she is aware that she had a stroke, but overall her speech is disorganized and tangential. CC: Liz Washington CNP Past Med Surg Social Fam HX - Past Medical History Medical history: arthritis, CVA, diabetes, hyperlipidemia, hypertension, osteoporosis, TIA, other - Past Surgical History Surgical History: pacemaker/AICD, other, AICD, pacemaker - Social History Smoking Status: Never smoker Smokeless Tobacco Status: No Alcohol use: none Drug use: none - Family History Mother Adopted: [place]: [place] Family Member Ethnicity: Non- Living Status: Age at : 98 Cause of : natural Hx Family Cardiac Disorders: Yes Hx Family Endocrine Disorder: Yes Hx Family Neurologic Disorders: Yes (cva) Father Adopted: [place]: [place] Family Member Ethnicity: Non- Living Status: Age at : 84 Cause of : natural Hx Family Cardiac Disorders: Yes (HTN) Medications & Allergies Cholecalciferol (Vitamin D3) [Vitamin D3] 5,000 unit PO DAILY 03/06/17 [History] Magnesium Oxide [Magnesium] 500 mg PO DAILY 03/06/17 [History] Boyd-3/Dha/Epa/Fish Oil [Fish Oil 1,000 mg Softgel] 1,000 mg PO DAILY 03/06/17 [History] Rivaroxaban [Xarelto] 20 mg PO DAILY 03/06/17 [History] clonazePAM [Klonopin] 0.5 mg PO BID PRN 03/06/17 [History] Lisinopril [Zestril] 10 mg PO DAILY 09/08/17 [History] 3 Allergy/AdvReac Type Severity Reaction Status Date / Time Penicillins Allergy Hives Verified 09/08/17 13:24 Mental Status Exam Additional observations: Elderly white female, confused, speech is disorganized and irrelevant. Cannot be evaluated for competency at this time due to her condition post CVA. Results - Vital Signs Vital signs: Temp Pulse Resp BP Pulse Ox 97.5 F L 73 14 153/77 97 09/11/17 11:07 09/11/17 11:07 09/11/17 11:07 09/11/17 11:07 09/11/17 11:07 - Labs Labs: Laboratory Last Values WBC 8.3 K/mcL (4.3-11.1) 09/11/17 02:58 RBC 4.02 M/mcL (3.82-4.97) 09/11/17 02:58 Hgb 12.4 g/dL (11.5-15.4) 09/11/17 02:58 Hct 36.6 % (35.3-44.9) 09/11/17 02:58 MCV 91.0 fL (83.0-100.0) 09/11/17 02:58 MCH 30.8 pg (28.0-33.3) 09/11/17 02:58 MCHC 33.9 g/dL (31.6-35.5) 09/11/17 02:58 RDW 12.2 % (11.5-14.5) 09/11/17 02:58 Plt Count 212 K/mcL (140-400) 09/11/17 02:58 MPV 10.7 fL (9.4-12.4) 09/11/17 02:58 Immature Gran % 0.5 % (0-4) 09/11/17 02:58 Seg Neutrophils % 60.7 % 09/11/17 02:58 Lymphocytes % 27.3 % 09/11/17 02:58 Monocytes % 8.5 % 09/11/17 02:58 Eosinophils % 2.4 % 09/11/17 02:58 Basophils % 0.6 % 09/11/17 02:58 Neutrophils # 5.1 K/mcL (1.6-8.9) 09/11/17 02:58 Lymphocytes # 2.3 K/mcL (0.6-4.6) 09/11/17 02:58 Monocytes # 0.7 K/mcL (0.0-1.3) 09/11/17 02:58 Eosinophils # 0.2 K/mcL (0.0-0.6) 09/11/17 02:58 Basophils # 0.1 K/mcL (0.0-0.2) 09/11/17 02:58 PT 14.0 Seconds (9.4-12.1) H 09/07/17 21:50 INR 1.3 09/07/17 21:50 APTT 36.3 Seconds (26.0-36.0) H 09/07/17 21:50 Sodium 142 mEq/L (136-145) 09/11/17 02:58 Potassium 3.6 mEq/L (3.5-4.5) 09/11/17 02:58 Chloride 111 mEq/L (98-109) H 09/11/17 02:58 Carbon Dioxide 24 mEq/L (19-29) 09/11/17 02:58 BUN 21 mg/dL (7-20) H 09/11/17 02:58 Creatinine 0.70 mg/dL (0.57-1.11) 09/11/17 02:58 Est GFR ( Amer) > 60 (> 60) 09/11/17 02:58 Est GFR (Non-Af Amer) > 60 (> 60) 09/11/17 02:58 BUN/Creatinine Ratio 30 (6-26) H 09/11/17 02:58 Glucose 105 mg/dL (70-99) H 09/11/17 02:58 Calculated Osmolality 297 (280-300) 09/11/17 02:58 Calcium 8.9 mg/dL (8.6-10.8) 09/11/17 02:58 Magnesium 2.1 mg/dL (1.6-2.6) 09/08/17 04:03 Total Bilirubin 0.6 mg/dL (0.2-1.2) 09/07/17 21:50 Direct Bilirubin 0.2 mg/dL (0.0-0.5) 09/07/17 21:50 Indirect Bilirubin 0.4 mg/dL (0.0-1.2) 09/07/17 21:50 AST 30 Units/L (5-34) 09/07/17 21:50 ALT 19 Units/L (0-55) 09/07/17 21:50 Alkaline Phosphatase 48 Units/L (38-126) 09/07/17 21:50 Creatine Kinase 338 Units/L (29-168) H 09/07/17 21:50 Troponin I 0.02 ng/mL (0-0.03) 09/07/17 21:50 Serum Total Protein 7.4 g/dL (6.0-8.3) 09/07/17 21:50 Albumin 4.2 g/dL (3.5-5.0) 09/07/17 21:50 Globulin 3.2 g/dL (2.4-3.5) 09/07/17 21:50 Albumin/Globulin Ratio 1.3 (1.1-2.2) 09/07/17 21:50 Urine Color Yellow (Yellow) 09/09/17 08:00 Urine Clarity Clear (Clear) 09/09/17 08:00 Urine pH 6.5 pH Units (5.0-8.0) 09/09/17 08:00 Ur Specific Lena 1.021 (1.010-1.025) 09/09/17 08:00 Urine Protein Negative mg/dL (Neg-Trace) 09/09/17 08:00 Urine Glucose (UA) Normal mg/dL (Normal) 09/09/17 08:00 Urine Ketones Negative mg/dL (Negative) 09/09/17 08:00 Urine Blood Negative (Negative) 09/09/17 08:00 Urine Nitrite Negative (Negative) 09/09/17 08:00 Urine Bilirubin Negative (Negative) 09/09/17 08:00 Urine Urobilinogen Normal mg/dL (Normal) 09/09/17 08:00 Ur Leukocyte Esterase Small (Negative) H 09/09/17 08:00 Urine Microscopic RBC 5-15 per hpf (0-3) H 09/09/17 08:00 Urine Microscopic WBC 15-30 per hpf (0-3) H 09/09/17 08:00 Ur Squamous Epith Cells Many per lpf (None-Few) H 09/09/17 08:00 Urine Bacteria None Seen per hpf (None-Few) 09/09/17 08:00 Hyaline Casts None Seen per lpf (None-Few) 09/09/17 08:00 Ur Culture Indicated? YES (NO) A 09/09/17 08:00 Stool Occult Blood Negative (Negative) 09/10/17 12:21 Acetaminophen < 1.0 mcg/mL (10-30) L 09/07/17 21:50 Ethyl Alcohol < 10 mg/dL (0-10) 09/07/17 21:50 Specimen Rejected Not Liquid 09/10/17 12:21 - Impressions Impressions Head MRA 09/10/17 00:00 IMPRESSION: 1. Approximately 30% proximal right internal carotid artery stenosis by NASCET criteria. 2. Severe stenosis in the proximal M2 branch of the left middle cerebral artery, likely due to intracranial atherosclerotic disease. 3. Multifocal lumen irregularity and stenosis of the right P2 and P3 segments and left P2 segment of the posterior cerebral arteries, likely due to intracranial atherosclerotic disease. D/ / 09/10/2017 19:56:15 Amy Martin MD / joel Interpreting Provider: Amy Martin MD Neck MRA 09/10/17 17:02 IMPRESSION: 1. Approximately 30% proximal right internal carotid artery stenosis by NASCET criteria. 2. Severe stenosis in the proximal M2 branch of the left middle cerebral artery, likely due to intracranial atherosclerotic disease. 3. Multifocal lumen irregularity and stenosis of the right P2 and P3 segments and left P2 segment of the posterior cerebral arteries, likely due to intracranial atherosclerotic disease. D/ / 09/10/2017 19:56:15 Amy Martin MD / joel Interpreting Provider: Amy Martin MD Consult Discharge Plan - Plan Referrals: Nancy Diane, [employer] [Primary Care Provider] -
--- NOTE | 2017-09-11 15:39 | Discharge Summary ---
Date of Encounter: 09/11/17 Time of Encounter: 15:33 - Discharge Diagnosis (1) CVA (cerebral vascular accident) Priority: Primary Status: Acute Comments: Cori Hubbard is a 84-year-old female with past medical history CVA, paroxysmal A. fib and dementia who presented to [facility] on 09/07/17 after a fall at home. She was found to have an acute CVA. She was evaluated by neurology who recommended continuing home Xarelto and ASA. Evaluated by PT/ OT who recommended SNF placement. 1. CVA: hx TIAs and has loop recorder. Presented with left leg paresthesia and fall on day of admission. Brain MRI with an acute lacunar infarct in the right frontoparietal area. MRA of the neck did not show any critical carotid stenosis. TTE with normal EF, no PFO or cardiac source of emboli. 02/2017 Hgb A1c 4.8%, LDL 107. Evaluated by neurology who recommended continuing home ASA, Xarelto, statin. Will need to follow-up with Neurology outpatient. 2. Paroxysmal atrial fibrillation: per hx. Rate controlled. Cont Xarelto. Can follow-up with Cardiology as previously planned. 3. Essential hypertension: Per history. BP variable but acceptable. Continue home BP medication. BP can be monitored and medications adjusted PRN at SNF 4. Dementia: per hx. apparently having confusion while inpatient, now resolved. Evaluated by psychiatry for competency evaluation however this is unable to be completed due to dementia with superimposed delirium. Patient initially refusing to go to SNF, now she is agreeable. Mentation appears significantly improved and back to baseline. Can follow up with PCP and/or psychiatry outpatient. Qualifiers: CVA mechanism: unspecified Qualified Code(s): I63.9 - Cerebral infarction, unspecified (2) Paroxysmal a-fib Priority: Primary Status: Acute (3) Abnormal urinalysis Priority: Secondary Status: Acute - Discharge Medications Prescriptions: clonazePAM [Klonopin] 0.5 mg PO BID #14 tablet Home Medications: Cholecalciferol (Vitamin D3) [Vitamin D3] 5,000 unit PO DAILY 03/06/17 [History] Magnesium Oxide [Magnesium] 500 mg PO DAILY 03/06/17 [History] [place]ay-3/Dha/Epa/Fish Oil [Fish Oil 1,000 mg Softgel] 1,000 mg PO DAILY 03/06/17 [History] Rivaroxaban [Xarelto] 20 mg PO DAILY 03/06/17 [History] Lisinopril [Zestril] 10 mg PO DAILY 09/08/17 [History] Aspirin 81 mg PO DAILY tab.chew 09/11/17 [Rx] clonazePAM [Klonopin] 0.5 mg PO BID #14 tablet 09/11/17 [Rx] Allergies/Adverse Reactions: 3 Allergy/AdvReac Type Severity Reaction Status Date / Time Penicillins Allergy Hives Verified 09/08/17 13:24 Procedures/tests Complete & Pending: Procedures Performed prior 72 hours Category Date Time Status MR angio head wo con [MR] Routine MRI 09/10/17 Completed MR angio neck wo/w con [MR] Routine MRI 09/10/17 17:02 Completed MR head/brain wo con [MR] Stat MRI 09/09/17 21:21 Completed EV carotid duplex imaging BI Routine Y 09/10/17 22:48 Completed EV echo with saline Routine Y 09/10/17 22:48 Completed Date of admission: 09/08/17 00:06 Primary care physician: Nancy Diane CNP Consults: 09/08/17 02:28 Consult to Occupational Therapy [CONS] Routine Comment: Evaluate, develop and implement POC Reason for Consult: weakness Consult to Physical Therapy [CONS] Routine Comment: Evaluate, develop and implement POC Reason for Consult: weakness 09/10/17 11:51 Consult to Bowling Alley Attendant [CONS] Routine Reason for SW Consult: evaluation 09/10/17 16:24 Consult to Psychiatry [CONS] Routine Consulting Provider: Psychiatry Brady Reason for Consult: Assess for competency. Pt unsafe to be discharged home. PT reccommending inpt rehab. Pt has fallen 2x at home prior to arrival. Pt is not always coherent, oriented. Please assess to see if pt is competent to decide if she can go home. Time Notified: 16:27 Call Completed: Yes 09/10/17 17:05 Consult to Neurology [CONS] Routine Consulting Provider: Neurology [facility] Reason for Consult: Please evaluate pt for risks/benefits of anticoagulation due to falls at home. I spoke with Dr. Woodard regarding agent of anticoagulation, recommended that we now look at risks/benefits as a whole. Call Completed: No Discharging clinician: Shazia Joshi Anticipated date of discharge: 09/11/17 - Patient Status Disposition: Transfer Hospital Swing Bed Condition: Good Functional capacity at discharge: uses cane/walker Overall status at discharge: patient is progressing back to baseline - Discharge Instructions Instructions: Ischemic Stroke (DC), Atrial Fibrillation (DC), Cardiac Loop Recorder Insertion (DC) Follow Up With: Nancy Diane, [employer] [Primary Care Provider] - Additional Instructions: Follow Up Appointment 1. Please follow-up with PCP in 1-2 weeks after discharge from nursing facility 2. Please follow-up [facility] Neurology within 1-2 weeks - Diet and Activity Activity: as per physical therapy Diet: low fat, low cholesterol Interval History: Seen and examined at bedside, patient is new to me. Information obtained from chart review and patient report. Sitting up on edge of bed, says she feels joseph she is getting back to baseline. No numbness or tingling, no headache, no blurred vision Hospital course: See assessment and plan for hospital course - Time Spent with Patient Total time spent providing and/or coordinating discharge services: Greater than 30 minutes (44 minutes spent on discharge) - Constitutional Vitals: Temp Pulse Resp BP Pulse Ox 97.5 F L 73 14 153/77 97 09/11/17 11:07 09/11/17 11:07 09/11/17 11:07 09/11/17 11:07 09/11/17 11:07 General appearance: Present: cooperative, A&O X 3, pleasant, no acute distress, answers questions appropriately - Head Head exam: Present: atraumatic, normocephalic - Eye Eye exam: Present: PERRL, conjuntiva pink, sclera anicteric Pupils: Present: PERRL - Neck Neck exam general surgery: Present: supple, trachea midline. Absent: lymphadenopathy - Respiratory Respiratory exam: Present: CTAB. Absent: accessory muscle use, rales, rhonchi, wheezes - Cardiovascular Cardiovascular exam: Present: RRR, +S1, +S2. Absent: diastolic murmur, gallop, rubs, systolic murmur - GI/Abdominal GI/Abdominal exam: Present: normal bowel sounds, soft, no peritoneal signs. Absent: distended, tenderness - Extremities Exam Extremities exam: Present: warm, radial pulses palpable and symmetrical. Absent : calf tenderness, cyanotic, pedal edema - Neurological Exam Neurological exam: Present: CN II-XII intact, oriented X3, no focal deficits. Absent: pronater drift, facial droop, speech deficit - Skin Skin exam: Present: dry, intact
--- NOTE | 2017-09-11 16:26 | Physician Discharge Referral ---
ExtendedCare Referral Info Transfer To: [facility] Provider in Charge: Shazia Joshi CNP Provider in Charge after Transfer: Other ([facility] physician) Institutional Level of Care: Skilled - Diagnosis (1) CVA (cerebral vascular accident) Status: Acute (2) Paroxysmal a-fib Status: Acute (3) Abnormal urinalysis Status: Acute - Transfer Medications Prescriptions: clonazePAM [Klonopin] 0.5 mg PO BID #14 tablet Home Medications: Cholecalciferol (Vitamin D3) [Vitamin D3] 5,000 unit PO DAILY 03/06/17 [History] Magnesium Oxide [Magnesium] 500 mg PO DAILY 03/06/17 [History] Guild-3/Dha/Epa/Fish Oil [Fish Oil 1,000 mg Softgel] 1,000 mg PO DAILY 03/06/17 [History] Rivaroxaban [Xarelto] 20 mg PO DAILY 03/06/17 [History] Lisinopril [Zestril] 10 mg PO DAILY 09/08/17 [History] Aspirin 81 mg PO DAILY tab.chew 09/11/17 [Rx] clonazePAM [Klonopin] 0.5 mg PO BID #14 tablet 09/11/17 [Rx] Allergies/Adverse Reactions: 3 Allergy/AdvReac Type Severity Reaction Status Date / Time Penicillins Allergy Hives Verified 09/08/17 13:24 - Respiratory Orders Smoking Cessation: Smoking cessation has been advised. For more information, call the [place] Tobacco Quit Line at 7-812-OJMA-NOW. CERTIFICATION: I certify that the transfer of the above named patient to an Extended Care Facility is necessary for the continuing treatment of the diagnosis listed. The above information is true and accurate reflection of patient's current condition. Confidential - Redisclosure prohibited without a patient's written consent.
--- NOTE | 2017-09-13 09:49 | Electrocardiograph Report ---
[place] [id number] Test Date: 2017-09-07 Pat Name: Cori Hubbard Department: [id number] Room: 3B Gender: F Overnight Caregiver: TMR : 1935 Requested By: Abe Weber Order Number: [id number] Reading MD: Ameena Mondragon Measurements Intervals [place] Rate: 91 P: 38 MT: 148 QRS: -32 QRSD: 86 T: 59 QT: 346 QTc: 394 Interpretive Statements SINUS RHYTHM LEFT AXIS DEVIATION Electronically Signed On 09-13-2017 9:47:53 EDT by Ameena Mondragon
== END 2017-09-11 17:02 ==
LOC: 3BNU 20:49 → EMEROO 20:49 → 3BNU 09-08 00:24
PROVIDERS: ADMIT Family Medicine; ATTEND Registered Nurse

== ENCOUNTER 2020-10-22 17:08 | Observation (INO) ==
[2020-10-22] MEDS ORDERED: 0.9 % Sodium Chloride 1,000 ML IVC ONE (17:25)
[2020-10-22 18:26] LABS: INR 1.1; Prothrombin Time 12.5 Seconds (9.4-12.1)
[2020-10-22 18:27] LABS: Basophils # 0.1 K/mcL (0.0-0.2); Basophils % 0.6 %; Eosinophils # 0.1 K/mcL (0.0-0.6); Hemoglobin 8.5 g/dL (11.5-15.4); Immature Granulocytes % 0.7 % (0-4); Lymphocytes # 1.2 K/mcL (0.6-4.6); Lymphocytes % 11.6 %; Mean Corpuscular HGB Conc 29.3 g/dL (31.6-35.5); Mean Corpuscular Hemoglobin 24.5 pg (28.0-33.3); Mean Corpuscular Volume 83.6 fL (83.0-100.0); Mean Platelet Volume 10.7 fL (9.4-12.4); Monocytes # 0.6 K/mcL (0.0-1.3); Monocytes % 5.8 %; Neutrophils # 8.3 K/mcL (1.6-8.9); Platelet Count 333 K/mcL (140-400); Red Blood Count 3.47 M/mcL (3.82-4.97); Red Cell Distribution Width 14.9 % (11.5-14.5); Segmented Neutrophils % 80.3 %; White Blood Count 10.3 K/mcL (4.3-11.1)
[2020-10-22 18:29] LABS: Activated Partial Thrombo Time 29.8 Seconds (26.0-36.0)
[2020-10-22 18:46] LABS: Alanine Aminotransferase 13 Units/L (7-52); Albumin 4.1 g/dL (3.5-5.7); Albumin/Globulin Ratio 1.7 (1.1-2.2); Alkaline Phosphatase 36 Units/L (34-104); Aspartate Amino Transferase 16 Units/L (13-39); BUN/Creatinine Ratio 21 (6-26); Bilirubin,Total 0.3 mg/dL (0.3-1.0); Blood Urea Nitrogen 15 mg/dL (8-23); Calcium 9.2 mg/dL (8.6-10.3); Carbon Dioxide 26 mEq/L (23-29); Chloride 106 mEq/L (98-107); Globulin 2.4 g/dL (2.4-3.5); Glucose 108 mg/dL (70-105); Lipase 45 Units/L (11-82); Magnesium 2.1 mg/dL (1.6-2.6); Osmolality,Calculated 287 (280-300); Potassium 4.1 mEq/L (3.5-5.1); Sodium 138 mEq/L (136-145); Total Protein 6.5 g/dL (6.4-8.9); Troponin I < 0.03 ng/mL (< 0.04); eGFR For African Americans > 60 (> 60); eGFR For Non-African Americans > 60 (> 60)
[2020-10-22] MEDS ORDERED: Prochlorperazine 10 MG/2 ML VIAL IVP STA (18:54)
[2020-10-22] MEDS ORDERED: Acetaminophen 325 MG TABLET PO PRN (22:17)
[2020-10-22] MEDS ORDERED: Ondansetron 4 MG/2 ML VIAL IVP PRN (22:17)
[2020-10-22] MEDS ORDERED: Naloxone 0.4 MG/ML INJ IVP PRN (22:17)
[2020-10-22] MEDS ORDERED: Ketorolac 15 MG/ML VIAL IVP ONE (22:30)
[2020-10-23] MEDS: rOPINIRole 0.25 MG TABLET PO SCH ×2 (00:14→20:24)
[2020-10-23] MEDS ORDERED: Perflutren Lipid Microsphere 1.3 ML in 0.9 % Sodium Chloride 8.7 ML IVP PRN (05:28)
[2020-10-23] MEDS ORDERED: 0.9 % Sodium Chloride 1,000 ML IVC ONE (05:28)
[2020-10-23 13:23] LABS: Hematocrit 29.1 % (35.3-44.9); Hemoglobin 8.7 g/dL (11.5-15.4); Mean Corpuscular HGB Conc 29.9 g/dL (31.6-35.5); Mean Corpuscular Hemoglobin 25.5 pg (28.0-33.3); Mean Corpuscular Volume 85.3 fL (83.0-100.0); Mean Platelet Volume 10.8 fL (9.4-12.4); Platelet Count 307 K/mcL (140-400); Red Blood Count 3.41 M/mcL (3.82-4.97); Red Cell Distribution Width 15.3 % (11.5-14.5)
[2020-10-23 13:26] LABS: BUN/Creatinine Ratio 19 (6-26); Blood Urea Nitrogen 15 mg/dL (8-23); Calcium 8.8 mg/dL (8.6-10.3); Carbon Dioxide 23 mEq/L (23-29); Chloride 109 mEq/L (98-107); Glucose 86 mg/dL (70-105); Osmolality,Calculated 290 (280-300); Potassium 3.9 mEq/L (3.5-5.1); Sodium 140 mEq/L (136-145); Troponin I < 0.03 ng/mL (< 0.04); eGFR For African Americans > 60 (> 60); eGFR For Non-African Americans > 60 (> 60)
[2020-10-23 13:29] LABS: Chol/HDL Ratio 3.3 (0-4.9)
[2020-10-23 13:30] LABS: INR 1.1; Prothrombin Time 12.7 Seconds (9.4-12.1)
[2020-10-24] MEDS: clonazePAM 0.5 MG TABLET PO PRN ×2 (00:58→08:00)
[2020-10-24 07:16] VITALS: BP 150/68
[2020-10-24 07:58] LABS: Hematocrit 27.2 % (35.3-44.9); Mean Corpuscular HGB Conc 29.4 g/dL (31.6-35.5); Mean Platelet Volume 10.9 fL (9.4-12.4); Platelet Count 289 K/mcL (140-400); Red Cell Distribution Width 15.6 % (11.5-14.5); White Blood Count 8.2 K/mcL (4.3-11.1)
[2020-10-24 08:15] LABS: BUN/Creatinine Ratio 25 (6-26); Blood Urea Nitrogen 20 mg/dL (8-23); Calcium 8.9 mg/dL (8.6-10.3); Carbon Dioxide 23 mEq/L (23-29); Chloride 108 mEq/L (98-107); Glucose 101 mg/dL (70-105); Osmolality,Calculated 289 (280-300); Potassium 3.9 mEq/L (3.5-5.1); Sodium 138 mEq/L (136-145); eGFR For African Americans > 60 (> 60); eGFR For Non-African Americans > 60 (> 60)
[2020-10-24] MEDS ORDERED: Aspirin 81 MG TAB.CHEW PO SCH (09:00)
[2020-10-24] MEDS ORDERED: lisinopriL 10 MG TABLET PO SCH (09:00)
[2020-10-24] MEDS ORDERED: Vitamin B Complex/Vit C/Vit E 1 EACH TABLET PO SCH (09:00)
[2020-10-24] MEDS ORDERED: Magnesium Oxide 400 MG TABLET PO SCH (09:00)
[2020-10-24] MEDS ORDERED: Ascorbic Acid 500 MG TABLET PO SCH (09:00)
[2020-10-24] MEDS ORDERED: NON-FORMULARY MEDICATION 1 EACH EACH (Omega-3/Dha/Epa/Fish Oil [Fish Oil 1,000 Mg Softgel] PO SCH (09:00)
[2020-10-24] MEDS ORDERED: Cholecalciferol (D-3) 1,000 UNIT (25MCG) TABLET PO SCH (09:00)
== END 2020-10-24 12:53 | disposition home or self-care (01) ==
LOC: EMEROOARM 17:08 → 3BNU 17:08
PROVIDERS: ADMIT Internal Medicine; ATTEND Internal Medicine

== ENCOUNTER 2022-04-15 01:22 | Observation (INO) ==
[2022-04-15] MEDS ORDERED: Isovue-370 500 ML BOTTLE IVP ONE (01:57)
[2022-04-15 02:20] LABS: Basophils # 0.1 K/mcL (0.0-0.2); Basophils % 0.3 %; Hematocrit 48.5 % (35.3-44.9); Hemoglobin 16.1 g/dL (11.5-15.4); Immature Granulocytes % 0.6 % (0-4); Lymphocytes # 0.8 K/mcL (0.6-4.6); Lymphocytes % 4.9 %; Mean Corpuscular HGB Conc 33.2 g/dL (31.6-35.5); Mean Corpuscular Hemoglobin 30.8 pg (28.0-33.3); Mean Corpuscular Volume 92.9 fL (83.0-100.0); Mean Platelet Volume 11.1 fL (9.4-12.4); Monocytes # 0.4 K/mcL (0.0-1.3); Monocytes % 2.2 %; Platelet Count 227 K/mcL (140-400); Red Blood Count 5.22 M/mcL (3.82-4.97); Red Cell Distribution Width 12.1 % (11.5-14.5); White Blood Count 16.3 K/mcL (4.3-11.1)
[2022-04-15 02:27] LABS: INR 1.1
[2022-04-15 02:30] LABS: Activated Partial Thrombo Time 33.6 Seconds (26.0-36.0)
[2022-04-15 02:35] LABS: Alanine Aminotransferase 18 Units/L (7-52); Albumin 4.7 g/dL (3.5-5.7); Albumin/Globulin Ratio 1.6 (1.1-2.2); Alkaline Phosphatase 45 Units/L (34-104); Aspartate Amino Transferase 21 Units/L (13-39); BUN/Creatinine Ratio 28 (6-26); Bilirubin,Total 0.6 mg/dL (0.3-1.0); Blood Urea Nitrogen 20 mg/dL (8-23); Calcium 10.1 mg/dL (8.6-10.3); Carbon Dioxide 30 mEq/L (23-29); Chloride 98 mEq/L (98-107); Globulin 2.9 g/dL (2.4-3.5); Glucose 154 mg/dL (70-105); Osmolality,Calculated 290 (280-300); Potassium 4.1 mEq/L (3.5-5.1); Sodium 137 mEq/L (136-145); Total Protein 7.6 g/dL (6.4-8.9); Troponin I < 0.03 ng/mL (< 0.04); eGFR For African Americans > 60 (> 60); eGFR For Non-African Americans > 60 (> 60)
[2022-04-15 02:50] LABS: Amorphous Sediment,Urine Moderate per hpf (None-Few); Bilirubin,Urine Negative (Negative); Blood,Urine Negative (Negative); Clarity,Urine Turbid (Clear); Color,Urine Light-Yellow (Yellow); Glucose,Urine (UA) Normal (Normal); Hyaline Casts,Urine Few per lpf (None Seen); Ketones,Urine Negative (Negative); Leukocyte Esterase,Urine Negative (Negative); Mucus,Urine Few per lpf (None-Few); Nitrite,Urine Negative (Negative); Protein,Urine 30 mg/dL (Neg-Trace); RBC,Urine 0-3 per hpf (0-3); Specific Gravity,Urine 1.013 (1.010-1.025); Urobilinogen,Urine Normal (Normal); WBC,Urine 0-3 per hpf (0-3)
[2022-04-15 03:04] LABS: Influenza A PCR Negative (Negative); Influenza B PCR Negative (Negative); Resp. Syncytial Virus PCR Negative (Negative)
[2022-04-15 03:11] LABS: SARS-CoV-2 by PCR (In House) Negative (Negative)
[2022-04-15] MEDS ORDERED: Naloxone 0.4 MG/ML INJ IVP PRN (06:04)
[2022-04-15] MEDS ORDERED: Acetaminophen 325 MG TABLET PO PRN (06:04)
[2022-04-15] MEDS ORDERED: Ondansetron 4 MG/2 ML VIAL IVP PRN (06:04)
[2022-04-15] MEDS ORDERED: Perflutren Lipid Microsphere 1.3 ML in 0.9 % Sodium Chloride 8.7 ML IVP PRN (06:23)
[2022-04-15 06:45] LABS: Chol/HDL Ratio 2.9 (0-4.9); Cholesterol 197 mg/dL (< 200); HDL Cholesterol 68 mg/dL (40-59); LDL Cholesterol,Calculated 111 mg/dL (< 100); Magnesium 2.2 mg/dL (1.6-2.6); Phosphorous 2.7 mg/dL (2.7-4.5); Triglycerides 90 mg/dL (< 150)
[2022-04-15 06:58] LABS: Thyroid Stimulating Hormone 1.012 mcIU/mL (0.340-5.600)
[2022-04-15 08:59] LABS: Folate > 22.3 ng/mL (3.0-16.0); Vitamin B12 1016 pg/mL (250-1100)
[2022-04-15] MEDS: 0.9 % Sodium Chloride 1,000 ML IVC SCH ×3 (10:40→23:34)
[2022-04-15] MEDS: lisinopriL 10 MG TABLET PO SCH (10:41)
[2022-04-16 02:15] LABS: BUN/Creatinine Ratio 30 (6-26); Blood Urea Nitrogen 25 mg/dL (8-23); Calcium 9.2 mg/dL (8.6-10.3); Carbon Dioxide 25 mEq/L (23-29); Chloride 107 mEq/L (98-107); Glucose 93 mg/dL (70-105); Osmolality,Calculated 292 (280-300); Sodium 139 mEq/L (136-145); eGFR For African Americans > 60 (> 60); eGFR For Non-African Americans > 60 (> 60)
[2022-04-16 02:51] LABS: Basophils # 0.1 K/mcL (0.0-0.2); Basophils % 0.5 %; Eosinophils # 0.1 K/mcL (0.0-0.6); Eosinophils % 1.4 %; Hematocrit 42.9 % (35.3-44.9); Hemoglobin 14.5 g/dL (11.5-15.4); Immature Granulocytes % 0.5 % (0-4); Lymphocytes # 2.2 K/mcL (0.6-4.6); Lymphocytes % 23.2 %; Mean Corpuscular HGB Conc 33.8 g/dL (31.6-35.5); Mean Corpuscular Hemoglobin 31.3 pg (28.0-33.3); Mean Corpuscular Volume 92.5 fL (83.0-100.0); Mean Platelet Volume 11.8 fL (9.4-12.4); Monocytes % 10.1 %; Neutrophils # 6.1 K/mcL (1.6-8.9); Platelet Count 174 K/mcL (140-400); Red Blood Count 4.64 M/mcL (3.82-4.97); Red Cell Distribution Width 12.5 % (11.5-14.5); Segmented Neutrophils % 64.3 %; White Blood Count 9.5 K/mcL (4.3-11.1)
[2022-04-16] MEDS ORDERED: *HR* Labetalol 20 MG/4 ML SYRINGE IVP ONE (04:03)
[2022-04-16] MEDS: lisinopriL 10 MG TABLET PO SCH ×2 (08:17→21:06)
[2022-04-16] MEDS: Aspirin 81 MG TAB.CHEW PO SCH (08:17)
[2022-04-16] MEDS: 0.9 % Sodium Chloride 1,000 ML IVC SCH (08:17)
[2022-04-16 09:28] LABS: Basophils # 0.1 K/mcL (0.0-0.2); Basophils % 0.6 %; Eosinophils # 0.1 K/mcL (0.0-0.6); Eosinophils % 1.3 %; Hemoglobin 13.4 g/dL (11.5-15.4); Immature Granulocytes % 0.4 % (0-4); Lymphocytes # 1.9 K/mcL (0.6-4.6); Lymphocytes % 22.5 %; Mean Corpuscular HGB Conc 32.7 g/dL (31.6-35.5); Mean Corpuscular Hemoglobin 30.9 pg (28.0-33.3); Mean Corpuscular Volume 94.5 fL (83.0-100.0); Mean Platelet Volume 10.5 fL (9.4-12.4); Monocytes # 0.8 K/mcL (0.0-1.3); Monocytes % 9.8 %; Neutrophils # 5.4 K/mcL (1.6-8.9); Platelet Count 176 K/mcL (140-400); Red Blood Count 4.34 M/mcL (3.82-4.97); Red Cell Distribution Width 12.3 % (11.5-14.5); Segmented Neutrophils % 65.4 %; White Blood Count 8.2 K/mcL (4.3-11.1)
[2022-04-17] MEDS: clonazePAM 0.5 MG TABLET PO PRN ×2 (04:04→22:43)
[2022-04-17] MEDS: Aspirin 81 MG TAB.CHEW PO SCH (08:22)
[2022-04-17] MEDS: lisinopriL 10 MG TABLET PO SCH ×2 (08:22→22:43)
[2022-04-17] MEDS: amLODIPine 5 MG TABLET PO SCH (13:51)
[2022-04-18 06:02] LABS: Hematocrit 43.8 % (35.3-44.9); Hemoglobin 14.4 g/dL (11.5-15.4); Mean Corpuscular HGB Conc 32.9 g/dL (31.6-35.5); Mean Corpuscular Hemoglobin 30.6 pg (28.0-33.3); Mean Corpuscular Volume 93.2 fL (83.0-100.0); Mean Platelet Volume 10.8 fL (9.4-12.4); Platelet Count 229 K/mcL (140-400); Red Cell Distribution Width 12.5 % (11.5-14.5); White Blood Count 10.7 K/mcL (4.3-11.1)
[2022-04-18 06:23] LABS: BUN/Creatinine Ratio 30 (6-26); Blood Urea Nitrogen 26 mg/dL (8-23); Calcium 9.5 mg/dL (8.6-10.3); Carbon Dioxide 26 mEq/L (23-29); Chloride 106 mEq/L (98-107); Glucose 103 mg/dL (70-105); Osmolality,Calculated 297 (280-300); Potassium 4.1 mEq/L (3.5-5.1); Sodium 141 mEq/L (136-145); eGFR For African Americans > 60 (> 60); eGFR For Non-African Americans > 60 (> 60)
[2022-04-18 07:21] VITALS: TEMP 97.6
[2022-04-18] MEDS: lisinopriL 10 MG TABLET PO SCH (07:50)
[2022-04-18] MEDS: Aspirin 81 MG TAB.CHEW PO SCH (07:50)
[2022-04-18] MEDS: amLODIPine 5 MG TABLET PO SCH (07:50)
[2022-04-18 11:00] VITALS: BP 156/78; PULSE 83; O2SAT 95
[2022-04-18 12:29] LABS: Influenza A PCR Negative (Negative); Influenza B PCR Negative (Negative); Resp. Syncytial Virus PCR Negative (Negative)
[2022-04-18 12:30] LABS: SARS-CoV-2 by PCR (In House) Negative (Negative)
[2022-04-18 12:34] LABS: Magnesium 2.1 mg/dL (1.6-2.6); Phosphorous 3.4 mg/dL (2.7-4.5)
[2022-04-19] MEDS ORDERED: amLODIPine 5 MG TABLET PO SCH (09:00)
== END 2022-04-18 18:55 ==
LOC: 3BNU 01:22 → EMEROOARM 01:22 → SUATTDRO 05:56 → 3BNU 06:59
PROVIDERS: ADMIT Internal Medicine; ATTEND Student in an Organized Health Care Education/Training Program